=== PATIENT | female | born 1940 | race Hispanic/Latino ===

== ENCOUNTER 2021-02-03 10:08 | Inpatient (IN) | payer OTHER ==
--- NOTE | 2021-02-04 13:08 | R.PREADM ---
PRE-ADMISSION SCREENING FORM SCREENING DATE AND TIME 02/02/2021 10:29 (CDT) ANTICIPATED REHAB ADMISSION DATE 02/04/2021 REFERRING FACILITY [facility] REFERRAL DATE AND TIME 02/01/2021 10:29 (CDT) ACUTE ADMIT DATE 01/23/2021 Previous Rehabilitation(s): No. ATTENDING PHYSICIAN JU Galvez SR, MD REFERRING PHYSICIAN ORLANDO Galvez SR, MD REHAB FACILITY [facility] CLINICAL LIAISON Willard Lundberg PHYSICIAN REVIEWER Dr. Jose Martin Lozano M.D. MR# [id number] [id number] NAME ROSY SANCHES [address]ESS [id number] [place] [address] PH[address] [facility] [id number] DATE OF 1940 AGE 80 SSN# [id number] GENDER female MARITAL STATUS PREF. LANGUAGE (IF NON-KAZAKH) Slovak ADMIT FROM 02 - [facility] PRE-HOSPITAL LIVING SETTING 01 - Home (private home/apt. board/care, assisted living, fpc, transitional living) HOME TYPE AND DETAILS Type of home: single family house # of levels in the residence: 1 # of steps within the residence: 0 # of steps to enter the residence: 0 PRE-HOSPITAL LIVING WITH Family/Relatives FAMILY SUPPORT Yes PRIMARY FAMILY CONTACT NAME JONN SANCHES PRIMARY FAMILY CONTACT PHONE PRIMARY FAMILY CONTACT RELATIONSHIP PHONE PRIMARY FAMILY CONTACT ON ADM.? no IS PRIMARY FAMILY CONTACT AUTH. REP.? no 1ST EMERGENCY CONTACT JONN SANCHES 1ST CONTACT PHONE 1ST CONTACT RELATIONSHIP PHONE 1ST CONTACT ON ADM. no IS 1ST CONTACT AUTH. REP.? no PHONE 2ND CONTACT ON ADM.? no PATIENT EMPLOYMENT STATUS Retired (for age) PATIENT EMPLOYER No Employer PAYOR INFORMATION: 1ST PAYOR NAME MEDICARE 1ST PAYOR PHONE 1ST PAYOR INJURY/ILLNESS DUE TO ACCIDENT? No ANOTHER GREEN PARTY RESPONSIBLE? No PRIMARY REHAB/ACUTE DIAGNOSIS: ACUTE RIGHT FRONTAL STROKE ONSET DATE 01/25/2021 REHAB IMPAIRMENT CATEGORY (DAPHNE): 01 Stroke (STR) MEETS 60% rule AFFECTED EXTREMITIES: RLE, and RUE PRIMARY DIAGNOSIS-RELATED SURGERIES: N/A SUMMARY OF ACUTE HOSPITALIZATION: Pt. is a 80 yo Right-handed female. On 01/25/2021 Pt. presented to [facility] with sudden onset of right-side weakness. On 01/25/2021 she was admitted to [facility] with diagnosis ACUTE RIGHT FRONTAL STROKE. Her impairment category is Stroke 01 - Right Body (Left Brain) (01.2). Pre-morbidly, Pt. was independent/mod-I in Locomotion, Balance, Safety Awareness, and Self-Care; and she had good Endurance, Communication, and Social Cognition. Currently, she has deficits of Locomotion, Balance, Safety Awareness, Transfers Control, Sphincter Co ntrol, Communication, Self-Care, and Endurance. Pt. is now referred to [facility] for acute in-patient rehabilitation in order to maximize patient's functional independence in activities of daily living, strength, ROM, and mobi lity. Patient has realistic goal of being discharged at assistance level 7-Ind to reside at Home with Fami ly/Relatives. PAST MEDICAL HISTORY ARTHRITIS HYPERTENSION CHF HISTORY OF DEMENTIA HISTORY OF CATARACT PAST SURGICAL HISTORY: CATARACT SURGERY RIGHT KNEE SURGERY HYSTERECTOMY MEDICATION ALLERGIES: PENICILLIN ENVIRONMENTAL ALLERGIES: - Substance Allergies None Known - Other Allergies None Known CODE STATUS: Full code WEIGHT/HEIGHT/BMI: WEIGHT 184 lbs HEIGHT 4' 11" BMI 37.2 DIET: - Diet Type Regular - Diet - Solid Texture Regular - Diet - Liquid Texture Regular - Tube Feed N/A REVIEW OF SYSTEMS: - Gen Alert and awake Lying in bed No apparent distress Oriented to: person, time, and place - Vital Signs Temperature: 96 F SBP/DBP: 144/63 Pulse: 61 Resp: 18 Vital signs stable, afebrile - CVS RRR VITAL SIGNS Temperature: 96 F SBP/DBP: 144/63 Pulse: 61 Resp: 18 Vital signs stable, afebrile MEDICATIONS/TREATMENT: Other- See attached MAR (Medication Administration Record). CURRENT SPHINCTER CONTROL: Pre-hospital bladder status: unspecified # of bladder accidents in the last 7 days prior to screenin Pre-hospital bowel status: unspecified # of bowel accidents in the last 7 days prior to screenin Last Bowel Movement Date: 02/02/2021 CURRENT LOCOMOTION STATUS: 60' feet gait training distance seated DETAILED CURRENT FUNCTIONAL STATUS: - Bladder accident frequency: 7-Ind - No accidents in the past 7 days - Bowel accident frequency: 7-Ind - No accidents in the past 7 days - Walking score based on distance walked: 0(N/A) score based on distance walked: 2(50-149ft) - Wheelchair score based on distance traveled: 0(N/A) QI SCORES: - Self-Care A. Eating 03-Partial/moderate assistance B. Oral hygiene 03-Partial/moderate assistance C. Toileting hygiene 03-Partial/moderate assistance E. Shower/bathe self F. Upper body dressing 03-Partial/moderate assistance G. Lower body dressing 03-Partial/moderate assistance H. Putting on/taking off footwear 88-Not attempted due to medical condition or safety concerns - Mobility A. Roll left and right 03-Partial/moderate assistance B. Sit to lying 03-Partial/moderate assistance C. Lying to sitting on side of bed 03-Partial/moderate assistance D. Sit to stand 03-Partial/moderate assistance E. Chair/kkk-[id number]-[id number] transfer 03-Partial/moderate assistance F. Toilet transfer 03-Partial/moderate assistance G. Car transfer 88-Not attempted due to medical condition or safety concerns I. Walk 10 feet 03-Partial/moderate assistance J. Walk 50 feet with two turns 88-Not attempted due to medical condition or safety concerns K. Walk 150 feet 88-Not attempted due to medical condition or safety concerns L. Walking 10 feet on uneven surfaces 88-Not attempted due to medical condition or safety concerns M. 1 step (curb) 88-Not attempted due to medical condition or safety concerns N. 4 steps 88-Not attempted due to medical condition or safety concerns O. 12 steps 88-Not attempted due to medical condition or safety concerns P. Picking up object 88-Not attempted due to medical condition or safety concerns R. Wheel 50 feet with two turns 88-Not attempted due to medical condition or safety concerns S. Wheel 150 feet 88-Not attempted due to medical condition or safety concerns - Bladder and Bowel Bladder continence Bowel continence - Endurance Good - Balance Fair - Safety Awareness Fair CURRENT FUNC. DEFICITS: Self-Care, Mobility, Balance, and Safety Awareness CURRENT / PREVIOUS ASSISTIVE DEVICES: Rolling Walker HISTORY OF FALLS. HAS THE PATIENT HAD TWO OR MORE FALLS IN THE PAST YEAR OR ANY FALL WITH INJURY IN T HE PAST YEAR?: No PRIOR SURGERY. DID THE PATIENT HAVE MAJOR SURGERY DURING THE 100 DAYS PRIOR TO ADMISSION?: No THERAPY NOTES FROM ACUTE CARE: Attached. SPECIAL NEEDS: - Safety Concerns Skin breakdown precautions needed due to skin breakdown risk PRECAUTIONS: - Weight Bearing Precaution WBAT right LE PATIENT NEEDS ACTIVE AND ONGOING THERAPEUTIC INTERVENTION OF MULTIPLE THERAPY DISCIPLINES, INCLUDING: - Occupational Therapy Cognitive Retraining. Visual Perceptual Training. - Dietary and Nutrition Adequate Nutrition. Nutritional Education. Nutritional Supplements. - Speech Therapy Cognitive Training. Expressive Language Skills. Memory Strategies. Receptive Language Skills. Speech Intelligibility Training. PATIENT NEEDS CLOSE MEDICAL SUPERVISION BY A REHABILITATION PHYSICIAN FOR: Coordination of Treatment Team PATIENT REQUIRES 24X7 REHAB NURSING FOR MEDICAL AND FUNCTIONAL MGT. OF THE FOLLOWING DEFICITS: Disease Management Medication Management Patient/Family Education Providing Safe Environment PATIENT REQUIRES INTENSIVE, COORDINATED INTERDISCIPLINARY APPROACH TO REHAB: Arranging Home Equipment/Services Discharge Planning Family Intervention/Training Stock Letterer/Case Management PATIENT REHAB POTENTIAL: Paty SANCHES is able and expected to receive 3 hours of individualized therapy daily on at least 5 of every 7 days Paty Coker prognosis for significant practical improvement within a reasonable period of time appe ars Good Expected level of measurable improvement will be of a practical value to Paty TAYLORs functional cap acity or adaptations to impairments Has a viable Discharge Plan Medically appropriate; condition is sufficiently stable to participate in intensive rehab program DISCHARGE PLAN: - Estimated Length of Stay (days) 17. - Consensus on plan Discharge plan has been discussed with primary caregiver. Patient/Family is in agreement with the jessica n. Primary caregiver is in agreement with the plan. - Patient/Family Goals Return home independently. - Planned Living Setting Upon Discharge Home, to live with Family/Relatives. Transitional Living. RECOMMENDED CARE LEVEL: IRF RECOMMENDATION DETAILS: Recommended Admission to Comprehensive Rehabilitation Program to Increase Functional [place] SCREENER'S COMPLETENESS CONFIRMATION: - Screening Confirmation The patient data collection on this preadmission screening form is finished PHYSICIANS REVIEW AND ADMISSION DETERMINATION Admit - Based on my review of the Pre-Admission Screening results, in my medical judgment and experie nce, I concur with the findings and recommend admission to [facility], as this patient requires an IRF level of care. SIGNATURE PANEL: Twister In - [electronically] signed by Willard Lundberg on 02/04/2021 at 10:37 (CDT) Twister In - [electronically] signed by Javier Saucedo PT on 02/04/2021 at 12:24 (CDT) Physician Reviewer - [electronically] signed by Dr. Jose Martin Lozano M.D. on 02/04/2021 at 13:07 (T )
--- OUTSIDE RECORDS SUMMARY | 2021-02-04 20:59 | XMS REPORT | Continuity of Care Document ---
:1940 Author Organization [facility] t Address [address] [place] [address] Care Team Providers Name Role Phone Stepan SHAIKH Primary Care Physician Ju SHAIKH, O. Attending Clinician Justinsalashely Attending Clinician Unavailable MD JU O. Attending Clinician Unavailable Colleen SHAIKH, L Attending Clinician JU Admitting Clinician Unavailable MD JU O. Admitting Clinician Unavailable Payers Payer Name Policy Type Policy Effective Date Expiration Date Sour ce Number MEDICAREMEDICARE PART [id number] 2007 Shaan agnes A AND 00:00:00 [place] [id number] 2007[place] MUTUAL OF OMAHAMUTUAL [id number] [address] [facility] OF 00:00:00 Mosque [id number] 0-PresentCommercial Problems Condition Condition Condition Status Onset Resolution Last Treating Co mments Source Name Details Category Date Date Treatment Clinician Date Essential Essential Disease Active [facility] hypertensi hypertensi 5-23 Me thodi on on 00:00: st 00 Syncope Syncope Disease Active [place] 5-23 Methodi 00:00: st 00 Atrial Atrial Disease Active [place] fibrillati fibrillati 5-23 Me thodi on on 00:00: st 00 Allergies, Adverse Reactions, Alerts Allergy Allergy Status Severity Reaction(s) Onset Inactive Treating Comm ents Source Name Type Date Date Clinician [place]ic[place] DA Active [place] [facility]23 [place] [facility]: d [facility] Penicill Propensi Active H[place] 2017-09 [place] ins ty to 114 [facility] adverse 00:00: st reaction 00 s to drug Social History Social Habit Start Date Stop Date Quantity Comments Source History of Cigarette Smoker Wilfredo Cuadra tobacco use Alcohol intake 2021-01-24 2021-01-24 Ex-drinker [facility] thodist 00:00:00 00:00:00 (finding) Sex Ass[birth year] At [birth year] [facility] ethodist 00:00:00 00:00:00 Smoking Status Start Date Stop Date Source Former smoker 2021-01-24 00:00:00 2021-01-24 00:00:00 Wilfredo Cuadra Medications Ordered Filled Start Stop Current Ordering Indication Dosage Frequency Signature Comments Components Source Medication Medication Date Date Medication? Clinician (SIG) Name Name amLODIPine 2020- No 5mg QD Take 5 mg H ouroderick (NORVASC) 5 02-04-04 by mouth Met hodi mg tablet 19:39: 00:[address] 01 :00 aspirin 2020- No 81mg QD Take 81 mg [facility] (ECOTRIN) 02-04 06-04 by mouth Metho di 81 MG 19:39: 00:[address] enteric 01 :00 coated tablet cholecalcif 2020- No 1{tbl} QD Take 1 [place] ion, 02-04-04 tablet by [facility]i vitamin D3, 19:39: 00:[address] (VITAMIN D3 01 :00 daily. ORAL) losartan Yes 50mg QD Take 50 mg [facility] [facility] (COZAAR) 50 -04 by mouth Meth laura MG tablet 19:38: daily. st 56 furosemide Yes 20mg QD Take 20 mg [place] (LASIX) 20 6-04 by mouth Metho di mg tablet 19:38: daily. st 56 apixaban Yes 5mg Q.5D Take 1 [place] (ELIQUIS) 5 -04 tablet (5 Met hodi mg tablet 00:00: mg total) st 00 by mouth 2 (two) times a day. acetaminoph 2020- Yes 650mg Q4H Take 2 [place] en 02-04 tablets Methodi (TYLENOL) 00:00: 23:59 ([address] 325 MG 00 :00 total) by tablet mouth every 4 (four) hours as needed for mild pain, moderate pain or fever for up to 30 days. docusate 2020- Yes 100mg Q.5D Take 1 [place] sodium 02-04 capsule [facility] (COLACE) 00:00: 23:59 ([address] 100 MG 00 :00 total) by capsule mouth 2 (two) times a day for 30 days. hydrALAZINE 2020- Yes 5mg Q6H Infuse [facility] st[place] (APRESOLINE 02-04 0.25 mL (5 M ethodi ) 20 mg/mL 00:00: 23:59 mg total) s t injection 00 :00 into a venous catheter every 6 (six) hours as needed for high blood pressure for up to 30 days. rosuvastati 2020- Yes 20mg QD Take 1 [facility] [facility] n (CRESTOR) 02-04 tablet (20 M ethodi 20 mg 00:00: 23:59 mg total) st tablet 00 :00 by mouth nightly for 30 days. Vital Signs Vital Name Observation Time Observation Value Comments Source Systolic blood 2021-02-04 15:25:35 145 mm[Hg] Tiffanyto n [place] pressure Diastolic blood 2021-02-04 15:25:35 65 mm[Hg] Tiffanyt on [place] pressure Heart rate 2021-02-04 15:25:35 65 /min Wilfredo Cuadra Body temperature 2021-02-04 15:25:35 36.33 Madelaine Hous ton [place] Respiratory rate 2021-02-04 15:25:35 16 /min Tiffany Cuadra Oxygen saturation in 2021-02-04 15:25:35 97 /min Wilfredo Cuadra Arterial blood by Pulse oximetry Body weight 2021-02-01 03:27:14 83.598 kg Wilfredo Cuadra BMI 2021-02-01 03:27:14 37.22 kg/m2 Wilfredo Cuadra Body height 2021-01-23 15:44:15 149.9 cm Wilfredo Cuadra Procedures Procedure Date / Time Performing Clinician Source Performed COVID-19 QUALITATIVE PCR 2021-02-03 12:08:00 Andrews Latham COMPREHENSIVE METABOLIC 2021-02-03 06:22:00 Ally Samaniego PANEL ESTIMATED GFR 2021-02-03 06:22:00 Ally Samaniego MRI BRAIN WO CONTRAST 2021-02-01 19:00:00 Enid Ceja ESTIMATED GFR 2021-02-01 03:34:00 Nandini Dodd HC COMPLETE BLD COUNT 2021-02-01 03:34:00 Nandini Dodd W/AUTO DIFF BASIC METABOLIC PANEL 2021-02-01 03:34:00 Nandini Dodd XR SHOULDER 2+ VW LEFT 2021-01-30 17:02:17 Enid Ceja URINE CULTURE 2021-01-29 19:59:00 Nandini Dodd URINALYSIS SCREEN AND 2021-01-29 19:59:00 Nandini Dodd MICROSCOPY, WITH REFLEX TO CULTURE BASIC METABOLIC PANEL 2021-01-29 03:12:00 Ally Samaniego CBC HEMOGRAM 2021-01-29 03:12:00 Ally Samaniego ESTIMATED GFR 2021-01-29 03:12:[address] HEAD WO CONTRAST 2021-01-27 13:54:30 Ally Samaniego FL MODIFIED BARIUM SWALLOW 2021-01-26 13:40:38 Nandini Dodd HC COMPLETE BLD COUNT 2021-01-26 06:33:00 Nandini Dodd W/AUTO DIFF BASIC METABOLIC PANEL 2021-01-26 06:33:00 Nandini Dodd ESTIMATED GFR 2021-01-26 06:33:[address] ANGIOGRAM NECK W WO 2021-01-25 15:48:[address] ANGIOGRAM HEAD W WO 2021-01-25 15:48:[address] HEAD WO CONTRAST 2021-01-25 15:47:58 Elke Francis POC GLUCOSE 2021-01-25 14:33:00 Nandini Dodd HC COMPLETE BLD COUNT 2021-01-25 05:00:00 Nandini Dodd W/AUTO DIFF BASIC METABOLIC PANEL 2021-01-25 05:00:00 Nandini Dodd HEMOGLOBIN A1C 2021-01-25 05:00:00 Ally Samaniego LIPID PANEL 2021-01-25 05:00:00 Ally Samaniego HOMOCYSTINE, PLASMA 2021-01-25 05:00:00 Ally Samaniego FOLATE LEVEL 2021-01-25 05:00:00 Ally Samaniego VITAMIN B12 LEVEL 2021-01-25 05:00:00 Ally Samaniego THYROID STIMULATING 2021-01-25 05:00:00 Ally Samaniego HORMONE T4, FREE 2021-01-25 05:00:00 Ally Samaniego SEDIMENTATION RATE 2021-01-25 05:00:00 Ally Samaniego C-REACTIVE PROTEIN 2021-01-25 05:00:00 Ally Samaniego PROTHROMBIN TIME WITH INR 2021-01-25 05:00:00 Ally Samaniego PARTIAL THROMBOPLASTIN 2021-01-25 05:00:00 Ally Samaniego TIME (PTT) HIV AG/AB COMBINATION 2021-01-25 05:00:00 Ally Samaniego SYPHILIS TREPONEMA SCREEN 2021-01-25 05:00:00 Ally Samaniego WITH RPR CONFIRMATION (REVERSE ALGORITHM) ESTIMATED GFR 2021-01-25 05:00:00 Nandini Dodd TTE COMPLETE, WO CONTRAST, 2021-01-24 14:54:00 Nandini Dodd W DOPPLER ([id number]) US CAROTID DUPLEX 2021-01-24 13:10:[address] HEAD WO CONTRAST 2021-01-24 08:06:03 Nandini Dodd MRI BRAIN W WO CONTRAST 2021-01-24 07:26:00 Radha Rockwell MRA HEAD WO CONTRAST 2021-01-24 07:01:00 Radha Rockwell HC COMPLETE BLD COUNT 2021-01-24 04:54:00 Nandini Dodd W/AUTO DIFF BASIC METABOLIC PANEL 2021-01-24 04:54:00 Nandini Dodd ESTIMATED GFR 2021-01-24 04:54:00 Nandini Dodd LIPID PANEL 2021-01-24 04:54:00 Nandini Dodd ECG 12-LEAD 2021-01-23 20:41:40 Nandini Dodd THYROID STIMULATING 2021-01-23 20:24:00 Nandini Dodd HORMONE T4, FREE 2021-01-23 20:24:00 Nandini Dodd TROPONIN 2021-01-23 20:24:00 Nandini Dodd Plan of Care Planned Activity Planned Date Details Comments Source Future Scheduled 2021-04-03 INFLUENZA VACCINE Marva Cuadra Test 00:00:00 [code = INFLUENZA VACCINE] Future Scheduled 1992 SHINGLES VACCINES Marva Cuadra Test 00:00:00 (#1) [code = SHINGLES VACCINES (#1)] Future Scheduled 1960 Hepatitis C screening Shaan Cuadra Test 00:00:00 (procedure) [code = 334411959] Future Scheduled 1948 65+ PNEUMOCOCCAL Wilfredo Cuadra Test 00:00:00 VACCINE (1 of 2 - PPSV23) [code = 65+ PNEUMOCOCCAL VACCINE (1 of 2 - PPSV23)] Medication 2021-02-05 amLODIPine (NORVASC) [facility] 00:00:00 10 mg tablet [code = 939959] Medication 2021-02-05 cholecalciferol, [facility] 00:00:00 vitamin D3, (VITAMIN D3) 2,000 unit tablet [code = 455334] Medication 2021-02-05 FLUoxetine (PROzac) [facility] 00:00:00 20 MG capsule [code = 520743] Medication 2021-02-05 polyethylene glycol [facility] 00:00:00 (MIRALAX) 17 gram packet [code = 337296] Medication 2021-02-05 levoFLOXacin [facility] 00:00:00 (LEVAQUIN) 250 MG tablet [code = 557337] Encounters Start End Encounter Admission Attending Care Care Encounter Source Date/Time Date/Time Type Type Clinicians Facility Department ID 2021-01-23 2021-02-04 [facility] 016 [id number] [place] 00:00:00 00:00:00 NANDINI [address] 2020-08-18 2020-08-18 [facility] [id number] 15:24:08 15:48:[address] [facility] [id number] Surgical [id number] Specialti [id number] [place] Results Test Description Test Time Test Comments Results Result Comments Source SARS-CoV-2 (COVID-19) RNA [Presence] in Respiratory sp ecimen by 2021-02-03 16:56:56 LIZZETTE with probe detection Test Item Value Reference Range Interpretation Comme nts SARS-CoV-2 (COVID-19) RNA [Presence] in Respiratory Not detected No t-Detected specimen by LIZZETTE with probe detection (test code = 02311-3) Whether patient is employed in a healthcare setting (test code = 19274-4) Whether the patient has symptoms related to condition of interest (test code = 87012-3) Patient was hospitalized because of this condition (test code = 35773-5) Whether the patient was admitted to intensive care unit (ICU) for condition of interest (test code = 49329-4) Whether patient resides in a congregate care setting (test code = 09993-8) MRI Brain Wo [id number] 20:21:38Hm Interface, Radiology Results Incoming 02/01/2021 8:24 PM CDT EXAMINATION: MRI BRAIN WO CONTRASTCLINICAL HISTORY: Stroke follow up, Worsneing left sided weakness with neglectCOMPARISON: MRI brain 01/24/2021TECHNIQUE: Multiplanar and multisequence MRI imaging of the brain was obtained without contrast.FINDINGS:Multiple new acute infarcts in the right frontal and parietal schroeder radiata and centrum semiovale in the border zone distribution. No other acute infarct. No hemorrhage. No significant mass effect and no midline shift.Otherwise, there is mild to moderate chronic microvascular ischemic change and cerebral volume loss with proportionate prominence of ventricles. Basal cisterns are clear.Bilateral lens extractions. Mild scattered paranasal sinus mucosal thickening. Mastoid air cells are clear.IMPRESSION:1. Multiple new acute infarcts in the right frontal and parietal lobe in the border zone distribution. No hemorrhage.Findingswere discussed with and acknowledged by Ishan Calle at 02/01/2021 8:21 PM who verbalized understanding. [id number] [place] MethodistXR Shoulder 2+ Vw [id number] 17:03:30Hm Interface, Radiology Results 01/30/2021 5:06 PM CDT EXAMINATION: XR SHOULDER 2 VW LEFTCLINICAL HISTORY: Left shoulder painCOMPARISON: None.IMPRESSION:No acute fracture. Moderate left acromioclavicular joint osteoarthritis and mild glenohumeral joint osteoarthritis. Alignment is maintained. Globular density along the humeral head suggestive of calcific tendinitis. Normal osseous mineralization.[id number] MethodistCT Head Wo [id number] 14:10:59Hm Interface, Radiology Results 01/27/2021 2:14 PM CDT EXAMINATION: CT HEAD WO CONTRASTCLINICAL HISTORY: Stroke follow up, Lleweakness worsenedCOMPARISON: CT head January 24, 2021 and MRI brain January 24, 2021TECHNIQUE: Noncontrast head CT performed using radiation dose reduction techniques. Technical factors are evaluated and adjusted to ensure appropriate moderation of exposure. Automated dose management technology is applied to adjust radiation exposure while achieving a diagnostic quality image. FINDINGS:No evidence of acute intracranial hemorrhage, mass, mass effect or midline shift. Chronic microvascular ischemic changes of the white matter. Evolving subacute microvascular infarct at the right frontal deep white matter, more conspicuous than on previous CT better seen on recent MR. Ventricles and sulci are normal in appearance for patient's age. Basal cisterns are clear. Calvarium is intact.Bilateral eye lens replacement changes. Orbits are otherwise normal in appearance. No significant paranasal sinus mucosal thickening. Mastoid air cells are clear. Sclerotic changes of the carotid siphons. IMPRESSION:1. Evolving subacute microvascular infarct at the right frontal deep white matter otherwise no significant change from previous exam. No intracranial hemorrhage or herniation.[facility]-[id number] MethodistFL Modified Barium [id number] 13:51:28Hm Interface, Radiology Results 01/26/2021 1:54 PM CDT EXAMINATION: FL MODIFIED BARIUM SWALLOWCLINICAL HISTORY: AspirationCOMPARISON: None.Fluoroscopy time: 1 minute, 791 imagesFINDINGS: The patient was given multiple consistencies of barium. The swallowing act was normal. There was no evidence of aspiration. Flash penetrationIMPRESSION:Flash penetration without aspirationPlease refer to Speech Pathology report for further de tails.[facility]-[id number] MethodistCTA Head W Wo [id number] 15:59:03Hm Interface, Radiology Results 01/25/2021 4:02 PM CDT EXAMINATION: CT ANGIOGRAM HEAD W WO CONTRASTCLINICAL HISTORY: strokeCOMPARISON: MRA brain dated 01/24/2021.TECHNIQUE: Imaging of the intracranial circulation was obtained from the skull base to the vertex during the arterial phase of enhancement. 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.Severe short segment stenosis of the left INTERIOR WALL ASSEMBLER P2 segment.[facility]-[id number] [place] MethodistCTA Neck W Wo [id number] 15:57:01Hm Interface, Radiology Results Incoming - 01/25/2021 4:00 PM CDT EXAMINATION: CT ANGIOGRAM NECK W WO CONTRASTCLINICAL HISTORY: strokeCOMPARISON: None.TECHNIQUE:Neck CTA with multi-planar MIP and volumetric rendering (3D) after bolus intravenous iodinated contrast administration was performed.All CT images were acquired using low- dose technique with automated exposure control.FINDINGS:Normal branching pattern of the aortic arch. Arteriosclerosis of the aortic arch and proximal great vessels. Dominant left vertebral artery. Mild arteriosclerosis of the carotid bifurcations and proximal left internal carotid artery.The bilateral cervical carotid and vertebral arterial systems appear patent without evidence of dissection or hemodynamically significant stenosis (0% by NASCET criteria).Right thyroid nodule measuring approximately 1.1 cm,not requiring further workup. Multilevel degenerative changes of the cervical spine, likely most pronounced at C5-C6.IMPRESSION:No dissection or hemodynamically significant cervical carotid or vertebral artery stenosis.[facility]-[id number] MethodistPv carotid duplex 2021-01-24 22:02:00Interface, Radiology Results In - 01/24/2021 10:02 PM CDT [facility] Carotid Artery Duplex Report [id number] [place] [address] For quality management nurse purposes, the categorization of thedegree of the stenosis of this exam is based on criteria described in the IAC carotid stenosis grading white paper( www.intersocietal.org/Vascular) and Ciera Bhatt., Roman Mercer., et al. Carotid artery stenosis: russo-scale and Doppler US diagnosis--Society of Radiologists in Ultrasound Consensus Conference. Radiology. 2003 Nov; 229(2):340-6. Pat.Name: ROSY SANCHES Valerie.ID: [id number] .Date: 01/24/2021 Refer.MD: NANDINI DODD MD Exam Time: 12:38:00 PM Study Type:Carotid Age: 2 1940,80Y Sex: FEMALE Sonogrphr: Jonh, KONSTANTIN, EVERARDO Pat. Stat.:Inpatient Room: [facility] Tape Vol:DANIA, [facility] - 4: [id number] Echo Event ID:[id number] Order ID: [id number] Reason for Study:Syncope. History of HTN, CHF, dementia.Procedures: Colorflow, Grayscale/2D, Pulsed wave DopplerRace: C ---------SUMMARY: PHYSICAL ASSESSMENT Blood Pulses Carotid Pressure Carotid Temporal BruitRight IV + + 0Left 171/61 + + 0CAROTID ARTERY SCANRIGHT: There is intimal thickening in the common carotid artery.There is hard and calcified plaque noted in the bulb extending intothe proximal external carotid artery. Color flow is normal. Theinternal carotid artery is clear. There is antegrade flow noted inthe vertebral artery. LEFT: There is hard and soft plaque in the common carotid artery. Thereis calcified plaque noted in the bulb extending into theproximal internal and external carotid arteries. Color flow is normal.There is antegrade flow noted in the vertebral artery. PRELIMINARY FINDINGS1. <50% stenosis in the bulb and internal carotid artery,bilaterally. 2. <50% stenosis in theexternal carotid artery, bilaterally.3. Non-stenotic hard and soft plaque in the left mid common car otidartery. 4. There is antegrade flow noted in the vertebral artery, bilaterally.PHYSICIAN INTERPRETATION Bilateral carotid duplex examination demonstrated atheroscleroticplaques in the bulbs and in the left CCA. Less than 50% stenosis in the bulb and internal carotid artery,bilaterally.Both vertebral arteries are antegrade. FINDINGS: Carotid Findings: Right Left Verteb.Flw Antegrade Antegrade Subclavian Triphasic Biphasic MEASUREMENTS: ----- DOPPLERRight CCA Dist CCA Dist PSV 62.2 cm/s CCA Dist EDV5.06 cm/sRight CCA Mid CCA Mid PSV 77.7 cm/s CCA Mid EDV 7.3 cm/sRight CCA Prox CCA Prox PSV 80.3 cm/s CCA Prox EDV 6 cm/sRight ECA Prox ECA Prox PSV 114 cm/s ECA Prox EDV 0 cm/sRight ICA Dist ICA Dist PSV 80.8 cm/s ICA Dist EDV 15.3 cm/sRight ICA Mid ICA Mid PSV 77.6 cm/s ICA Mid EDV 13.8 cm/sRight ICA Prox ICA Prox PSV 51.1 cm/s ICA Prox EDV 11.9 cm/sRight Vertebral Vertebral PSV 58.1 cm/s Vertebral EDV 10.2 cm/sRight Subclavian Subclavian PSV 135 cm/s Subclavian EDV 0 cm/sLeft CCA Dist CCA Dist PSV 66 cm/s CCA Dist EDV 6.3 cm/sLeftCCA Mid CCA Mid PSV 78.5 cm/s CCA Mid EDV 9.04 cm/sLeft CCA Prox CCA Prox PSV 77.4 cm/s CCA Prox EDV 5.2 cm/sLeft ECA Prox ECA Prox PSV 93.8 cm/s ECA Prox EDV 0 cm/sLeft ICA Dist ICA Dist PSV 143 cm/s ICA Dist EDV 8.36 cm/sLeftICA Mid ICA Mid PSV 106 cm/s ICA Mid EDV 13 cm/sLeft ICA Prox ICA Prox PSV 93 cm/s ICA Prox EDV 13.9 cm/sLeft Vertebral Vertebral PSV 73.7 cm/s Vertebral EDV 7.43 cm/sLeft Subclavian Subclavian PSV 164 cm/s Subclavian EDV 0 cm/sRight ICA/CCA Ratio ICA/CCA PSV 0.658 Left ICA/CCA Ratio ICA/CCA PSV 1.18 Signed 01/24/2021 10:02 PMJace Benitez MD, [facility] Methodpeak behavioral health servicesTransthoracic Echocardiogram Complete, (w Contrast, Strain and 3D if needed)2021-01-24 19:57:00Interface, Radiology Results In - 01/24/2021 7:57 PM CDT Echocardiography Report [id number] [place] [address] Pat.Name: ROSY SANCHES Pat.ID: [id number] .Date: 01/24/2021 Refer.MD: NANDINI DODD MD Exam Time: 2:15:00 PM Study Type:Routine Echo Height: 59in Weight: 183lb BSA: 1.78 m2 Age: 2 1940,80Y Sex: FEMALE BP: 171/61 HR: 51 bpm Sonogrphr: EVERARDO Marroquin Pat. Stat.:Inpatient Room: [facility] Study Status:Final Echo Event ID:[id number] Order ID: [id number] Reason for Study:Arrhythmias - Infrequent APCs or infrequent VPCswithout other evidence of heart diseaseProcedures: 2D Echo, Colorflow Doppler, Portable SUMMARY: LV EF is hyperdynamic.RV systolic function is normal.LA volume is severely enlarged. FI NDINGS: LV: LV size is normal. Concentric left ventricular remodeling. LV EF is hyperdynamic. Overall wall motion is hyperdynamic. Estimated EF is >70%.RV: RV size is normal. RV systolic function is normal. RV wall motion is normal.LA: LA volume is severely enlarged.RA: RA size is normal.AO: Aortic root diameter is normal.WILBERTO: No pericardial effusion.AV: No structural AV abnormalities noted. A trace of aortic regurgitation. MV: Mild thickening and calcification of mitral leaflets. Thickened and/or calcified chordae. A trace of mitral regurgitation. PV: Pulmonic valve not well seen. A trace of pulmonic regurgitation. TV: No structural TV abnormalities noted. A trace of tricuspid regurgitation Alfaro: LV relaxation is impaired. LV filling pressure is borderline elevated. Other: Estimated PA systolic pressure is 34 mmH g, assuming a mean RAP of 5 mmHg. MEASUREMENTS: 2DParasternal Long [place] Ao An1.8 cm LVPWd 1 cm Ao Rtd 2.5 cm Index 1.4 cm/m2 LA Ds 3.9 cm IVSd 1.2 cm RWT 0.45 LVIDd 4.5 cm Index 2.5 cm/m2 LV Mass 168 g (87-129) LVIDs 2.1 cm LVM Index 95 g/m2 LV%fs 54 % LVOT 1.7 cm LA Sng Plane LA Area 27 cm2 (8.8-23.4) LA Vol 91 ml Index 51 ml/m2 LA LngAx 6.9 cm RA Sng Plane RA Vol 48 ml Index 27 ml/m2 RA LngAx 5.3 cm RA Area 16 cm2 (8.3-19.5)LVOT LVOT Area 2.2 cm2 DOPPLERLVOT Stroke Vol & Cardiac Out LVOT TVI 36 cm HR 69 bpm LVOT LVOT SV 79 ml LVOT CO 5.5 l/min SVi 44 ml/m2 LVOT CI 3.1 l/m/m2MV E/A Ratio MV pkE 99 cm/s (60-130) MV E/A 0.99 MV pkA 101 cm/s Signed 01/24/2021 07:57 Tray Chatterjee M.D.[facility] MethodistECG 12 lead 2021-01-24 10:37:30 Test Item Value Reference Range Interpretation Comments Ventricular rate (test 54 code = 253) Atrial rate (test code = 54 255) MO interval (test code = 150 266) QRSD interval (test code 84 = 260) QT interval (test code = 450 264) QTC interval (test code 426 = 265) P axis 1 (test code = 105 267) QRS axis 1 (test code = 30 268) T wave axis (test code = 53 270) EKG impression (test Sinus bradycardia-ST code = 273) abnormality, possible digitalis effect-Abnormal ECG-No previous ECGs available-Electronica lly Signed By Ramesh Moreira MD ([id number]) on 01/24/2021 10:37:24 AM [place] MethodistMRA Head Wo [id number] 08:03:38Addendum by Ryder Giordano MD on 01/24/2021 3:41 PM ADDENDUM #1 Retrospective review of the source images reveals normal variant early bifurcation of the right MCA, with anterior division arising from the mid M1 segment, images 66-76 of series 2. There is loss of flow-related signal along the proximal posterior division branch as it bifurcates along the anterior right sylvian fissure, image 25 of series 201. There is normal flow-related signal distally within the M2 and M3 branches of the right sylvian fissure. IMPRESSION: Findings suggestive of near occlusive thrombus within the proximal M2 branch of the right MCA as detailed above, which likely contributes to the recent ischemia within the right frontal lobe white matter. Interface, Radiology Results Incoming- 01/24/2021 8:06 AM CDT EXAMINATION: MRA HEAD WO CONTRASTCLINICAL HISTORY: Stroke follow upCOMPARISON: NoneTECHNIQUE: [id number] MRA images of the elem of Allan vessels were obtained with multiplanar and 3-D reconstructive algorithms.FINDINGS:Normal flow-related signal is noted within the cervical, petrous, cavernous, clinoid and supraclinoid segments of the internal carotid arteries bilaterally. No aneurysms or measurable stenosis identified.The major branches of the anterior and posterior circulations are patent without luminal irregularity. No basilar tip aneurysms identified. The V4 segments have normal flow-related signal bilaterally. No variant anatomy.IMPRESSION:Patent elem of Allan vasculature, without evidence of an eurysm or significant stenosis.CARONDELET [id number] MethodUNM [facility]oval [facility] CenterI Brain W Wo [id number] 08:02:16 Interface, Radiology Results 01/24/2021 8:05 AM CDT EXAMINATION: MRI BRAIN W WO CONTRASTCLINICAL HISTORY: Stroke follow upCOMPARISON: CT head 07/17/2018.TECHNIQUE: Multiplanar and multisequence MRI imaging of the brain was obtained with and without contrast.FINDINGS:There are punctate foci restricted diffusion throughout theright frontal lobe white matter, for example image 9 of series 3, compatible with recent infarcts. No associated susceptibility identified to suggest hemorrhage. No other foci restricted diffusion identified.Scattered T2/FLAIR hyperintensities are noted throughout the periventricular and subcortical white matter, nonspecific but likely related to moderate chronic microvascular ischemic changes. No restricted diffusion identified to indicate recent infarct. No intra or extra-axial fluid collections identified. No mass, mass effect, or midline shift is seen.The basal ganglia, thalami, midbrain, cathy and cervicomedullary junction are unremarkable. Sella turcica is normal in appearance. The ventricular system and sulci are prominent, compatible with global parenchymal volume loss, unremarkable for patient's age. The basal cisterns are patent. The calvarium appears intact. The major intracranial vascular flow voids are present. No abnormal parenchymal or meningeal enhancement identified. Prior cataract lens extractions are noted bilaterally. The paranasal sinuses are unremarkable. The mastoid air cells and middle ear cavities are clear.IMPRESSION:Acute right frontal microvascular ischemic infarcts on background moderate chronic microvascular ischemic changes. No evidence of hemorrhage.These findings were discussed with ISHAN Garcia at 0800 hours on 01/24/2021 who verbalized understanding.[facility] [id number] MethodistCOMPREHENSIVE METABOLIC PANEL 2021-01-23 11:30:00 Test Item Value Reference Range Interpretation Comments SODIUM (test code = NA) 143 mmol/L 134-147 N POTASSIUM (test code = 3.8 mmol/L 3.4-5.0 N K) CHLORIDE (test code = 109 mmol/L 100-108 H CL) CARBON DIOXIDE (test 30 mmol/L 21-32 N code = CO2) ANION GAP (test code = 4.0 GAP calc 4.0-15.0 N GAP) GLUCOSE (test code = 98 MG/DL 70-110 N GLU) BLOOD UREA NITROGEN 20 MG/DL 7-18 H (test code = BUN) GLOMERULAR FILTRATION >=60 max estimate >60 RATE (test code = GFR) estGFR CREATININE (test code = 0.7 MG/DL 0.6-1.0 N CREAT) TOTAL PROTEIN (test code 7.4 G/DL 6.4-8.2 N = PROT) ALBUMIN (test code = 3.8 G/DL 3.4-5.0 N ALB) GLOBULIN (test code = 3.6 GM/dL GLOB) ALBUMIN/GLOBULIN RATIO 1.1 RATIO 1.2-2.2 L (test code = A/G) CALCIUM (test code = CA) 9.6 MG/DL 8.5-10.1 N BILIRUBIN TOTAL (test 0.40 MG/DL 0.2-1.2 N code = BILT) SGOT/AST (test code = 17 Unit/L 15-37 N AST) SGPT/ALT (test code = 18 Unit/L 12-78 N ALT) ALKALINE PHOSPHATASE 80 Unit/L 45-117 N TOTAL (test code = ALKP) Completed by Nursing: [id number] 11:30:00 Test Item Value Reference Range Interpretation Comments MAGNESIUM (test code = MAG) 2.3 MG/DL 1.8-2.4 N Completed by Nursing: NONT PRO-BRAIN NATRIURETIC [id number] 11:30:00 Test Item Value Reference Range Interpretation Comments NT PRO-BRAIN NATRIURETIC PEPTI 924 PG/ML 0-100 H (test code = PROBNP) Completed by Nursing: [id number] 11:30:00 Test Item Value Reference Range Interpretation Comments TROPONIN-I (test < 0.015 NG/ML 0.000-0.045 N Negative: </= 0.045 code = TROPI) Positive: >/= 0.046 Correlation wit h serial results, other cardiac markers, and cl inical findings is nec essary to determine the c linical significance of this result. Quantit ative results using d ifferent methodologies s hould not be compared to one another as nume rical results may shazia yby method. Completed by Nursing: NOCOMPREHENSIVE METABOLIC [id number] 11:21:00 Test Item Value Reference Range Interpretation Comments SODIUM (test code = NA) 143 mmol/L 134-147 N POTASSIUM (test code = K) 3.8 mmol/L 3.4-5.0 N CHLORIDE (test code = CL) 109 mmol/L 100-108 H CARBON DIOXIDE (test code = CO2) 30 mmol/L 21-32 N ANION GAP (test code = GAP) 4.0 GAP calc 4.0-15.0 N GLUCOSE (test code = GLU) 98 MG/DL 70-110 N BLOOD UREA NITROGEN (test code = 20 MG/DL 7-18 H BUN) GLOMERULAR FILTRATION RATE (test estGFR >60 code = GFR) CREATININE (test code = CREAT) MG/DL 0.6-1.0 TOTAL PROTEIN (test code = PROT) G/DL 6.4-8.2 ALBUMIN (test code = ALB) G/DL 3.4-5.0 GLOBULIN (test code = GLOB) GM/dL ALBUMIN/GLOBULIN RATIO (test RATIO 1.2-2.2 code = A/G) CALCIUM (test code = CA) 9.6 MG/DL 8.5-10.1 N BILIRUBIN TOTAL (test code = MG/DL 0.2-1.2 BILT) SGOT/AST (test code = AST) Unit/L 15-37 SGPT/ALT (test code = ALT) Unit/L 12-78 ALKALINE PHOSPHATASE TOTAL (test Unit/L 45-117 code = ALKP) Completed by Nursing: [id number] 11:21:00 Test Item Value Reference Range Interpretation Comments MAGNESIUM (test code = MAG) MG/DL 1.8-2.4 Completed by Nursing: NONT PRO-BRAIN NATRIURETIC [id number] 11:21:00 Test Item Value Reference Range Interpretation Comments NT PRO-BRAIN NATRIURETIC PEPTI (test PG/ML 0-100 code = PROBNP) Completed by Nursing: [id number] 11:21:00 Test Item Value Reference Range Interpretation Comments TROPONIN-I (test code = TROPI) NG/ML 0.000-0.045 Completed by Nursing: NOCBC W/AUTO [id number] 11:15:00 Test Item Value Reference Range Interpretation Comments WHITE BLOOD CELL (test code = 6.4 K/mm3 3.5-11.0 N WBC) RED BLOOD CELL (test code = 5.07 M/mm3 4.70-6.10 N RBC) HEMOGLOBIN (test code = HGB) 13.7 G/DL 10.4-14.9 N HEMATOCRIT (test code = HCT) 43.4 % 31.5-44.1 N MEAN CELL VOLUME (test code = 85.6 Fl 84.5-98.6 N MCV) MEAN CELL HGB (test code = MCH) 27.0 pg 27.0-34.2 N MEAN CELL HGB CONCETRATION 31.6 G/DL 31.5-34.0 N (test code = MCHC) RED CELL DISTRIBUTION WIDTH 12.9 SD 11.5-14.5 N (test code = RDW) PLATELET COUNT (test code = 205 K/mm3 150-450 N PLT) MEAN PLATELET VOLUME (test code 10.50 fL 7.0-10.5 N = MPV) NEUTROPHIL % (test code = NT%) 67.6 % 40-76 N IMMATURE GRANULOCYTE % (test 0.6 % 0.0-5.0 N code = IG%) LYMPHOCYTE % (test code = LY%) 20.8 % 20.5-51.1 N MONOCYTE % (test code = MO%) 7.0 % 1.7-9.3 N EOSINOPHIL % (test code = EO%) 3.1 % 0.0-6.0 N BASOPHIL % (test code = BA%) 0.9 % 0.0-2.0 N NUCLEATED RBC % (test code = 0.0 /100WBC% 0.0-1.0 N NRBC%) NEUTROPHIL # (test code = NT#) 4.4 K/mm3 1.8-7.6 N IMMATURE GRANULOCYTE # (test 0.04 x10 3/uL 0.00-0.03 H code = IG#) LYMPHOCYTE # (test code = LY#) 1.3 K/mm3 0.6-3.2 N MONOCYTE # (test code = MO#) 0.5 K/mm3 0.3-1.1 N EOSINOPHIL # (test code = EO#) 0.2 K/mm3 0.0-0.4 N BASOPHIL # (test code = BA#) 0.1 K/mm3 0.0-0.1 N NUCLEATED RBC # (test code = 0.0 K/mm3 0.0-0.1 N NRBC#) MANUAL DIFF REQUIRED (test code NO DIFF/SCN CRITERIA = MDIFF) - XR CHEST 1 [id number] 11:05:00 [facility] 1940 Sex: F Name: ROSY SANCHES [facility] : 1940 Age/S: 80 / F [id number] Unit #: [id number] Loc:[place] [address] Phys: Leslie Diaz MD Acct: [id number] Dis Date: Status: PRE ER PHONE #: [phone] Exam Date: 01/23/2021 1100 FAX #: Reason: AFib with RVR EXAMS: CPT: [id number] XR CHEST 1 V [id number] Fluoro Time: DAP (Gy m2): Air Kerma (mGy): CLINICAL HISTORY: AFib with RVR. LOCATION: A1 FINDINGS: No comparison studies. A portable AP view of the chest is dated 01/23/2021 at 11:04 AM. There is mild cardiomegaly with moderate calcification at the aortic arch. There is central vascular congestion and mild diffuse interstitial prominence. No consolidation or pleural effusions. There is mild dextroscoliotic curvature of the thoracic spine with mild degenerative changes noted of the skeletal structures. IMPRESSION: 1. There is central vascular congestion and mild diffuse interstitial prominence. This may represent mild edema. Please correlate clinically. 2. Mild cardiomegaly. at 1105 Reported and signed by: Elton Hair M.D. CC: Leslie Diaz MD PAGE 1 Signed Report Name: ROSY SANCHES [place] : 1940 Age/S: 80 / F [phone] Unit #: [id number] Loc: [place] [address] Phys: Leslie Diaz MD Acct: [id number] Dis Date: Status: PRE ER PHONE #: [phone] Exam Date: 01/23/2021 1100 FAX #: Reason: AFib with RVR EXAMS: CPT: [id number] XR CHEST 1 V [id number] Fluoro Time: DAP (Gy m2): Air Kerma (mGy): <Continued> Technologist: Lenard Dhillon, RT(R)(CT) Trnscb Date/Time: 01/23/2021 (4130) [id number] Orig Print D/T: S: 01/23/2021 (6171) PAGE 2Signed Report
[2021-02-04] MEDS ORDERED: POLYETHYL GLY 3350 17 GM/DOSE PO PRN (21:23)
[2021-02-04] MEDS: ACETAMINOPHEN 325 MG TABLET PO PRN (21:37)
[2021-02-05 06:40] LABS: Absolute Lymphocytes (CBC) 1.1 K/uL (0.7-4.9); MPV 8.5 fL (7.6-11.3)
[2021-02-05 06:43] LABS: Basophils % 2.2 % (0-1.3); Lymphocytes % 21.5 % (15.3-44.8); RBC Red Blood Cell Count 4.79 M/uL (3.86-4.86)
[2021-02-05 06:58] LABS: Albumin 2.8 g/dL (3.4-5.0); BUN Blood Urea Nitrogen 19 mg/dL (7-18); Bicarbonate 29 mmol/L (21-32); Glucose Level 81 mg/dL (74-106); Magnesium 2.3 mg/dL (1.8-2.4); Potassium 4.1 mmol/L (3.5-5.1); Prealbumin 13.1 mg/dL (20-40); Sodium Level 141 mmol/L (136-145)
[2021-02-05] MEDS: FUROSEMIDE 20 MG TABLET PO SCH (09:10)
[2021-02-05] MEDS: APIXABAN 5 MG TABLET PO SCH ×2 (09:10→20:34)
[2021-02-05] MEDS: VITAMIN D 1000 UNIT TAB PO SCH (09:10)
[2021-02-05] MEDS: FLUOXETINE 20 MG CAP PO SCH (09:11)
[2021-02-05] MEDS: DOCUSATE NA 100 MG CAP PO SCH ×2 (09:11→20:34)
[2021-02-05] MEDS: levoFLOXacin 250 MG TAB PO SCH (09:11)
[2021-02-05] MEDS: ACETAMINOPHEN 325 MG TABLET PO PRN (09:13)
[2021-02-05] MEDS: AMLODIPINE 5 MG TAB PO SCH ×2 (09:14→20:34)
[2021-02-05] MEDS: LOSARTAN POTASSIUM 50 MG TABLET PO SCH (12:31)
[2021-02-05] MEDS: LIDOCAINE 4% PATCH TOP SCH (12:37)
--- NOTE | 2021-02-05 19:18 | R.HP ---
HISTORY AND PHYSICAL FACILITY: [facility] ENCOUNTER DATE AND TIME: 02/05/2021 19:11 (CDT) MR#: [id number] NAME ROSY SANCHES ADDRESS: [facility] [place]: [place] [address]IP [address] PHONE: DATE OF : 1940 AGE: 80 SSN# [id number] GENDER: Female MARITAL STATUS PRE-HOSPITAL LIVING SETTING 01 - Home (private home/apt. board/care, assisted living, fci, transitional living) PRE-HOSPITAL LIVING WITH Family/Relatives ENCOUNTER PHYSICIAN: Dr. Jose Martin Lozano M.D. REFERRING DOCTOR: ORLANDO Galvez SR, MD DATE OF ADMISSION: 02/04/2021 20:55 (CDT) REFERRING FACILITY [facility] HOME TYPE AND DETAILS: Type of home: single family house # of levels in the residence: 1 # of steps within the residence: 0 # of steps to enter the residence: 0 ONSET DATE: 01/25/2021 PRIMARY DIAGNOSIS-RELATED SURGERIES: N/A HISTORY OF PRESENT ILLNESS (HPI): Pt. is a 80 yo Right-handed female. On 01/25/2021 Pt. presented to [facility] with sudden onset of right-side weakness. On 01/25/2021 she was admitted to [facility] with diagnosis ACUTE RIGHT FRONTAL STROKE. Her impairment category is Stroke 01 - Right Body (Left Brain) (01.2). Pre-morbidly, Pt. was independent/mod-I in Locomotion, Balance, Safety Awareness, and Self-Care; and she had good Endurance, Communication, and Social Cognition. Currently, she has deficits of Locomotion, Balance, Safety Awareness, Transfers Control, Sphincter Co ntrol, Communication, Self-Care, and Endurance. Pt. is now referred to [facility] for acute in-patient rehabilitation in order to maximize patient's functional independence in activities of daily living, strength, ROM, and mobi lity. Patient has realistic goal of being discharged at assistance level 7-Ind to reside at Home with Fami ly/Relatives. CBC with differential and BMP are essentially normal. Prealbumin is low at 13.1. MEDICATION ALLERGIES: PENICILLIN ENVIRONMENTAL ALLERGIES: - Substance Allergies None Known - Other Allergies None Known PAST MEDICAL HISTORY: ARTHRITIS HYPERTENSION CHF HISTORY OF DEMENTIA HISTORY OF CATARACT PAST SURGICAL HISTORY: CATARACT SURGERY RIGHT KNEE SURGERY HYSTERECTOMY SOCIAL HISTORY: - Home Living Family/Relatives REVIEW OF SYSTEMS: - Gen No Chills Fatigue No Fever - Eyes No Double Vision No itchiness - ENMT No Difficulty Swallowing - CVS No Chest Discomfort No Chest Pain Fatigue No Weight Gain - Resp No Cough No Shortness of Breath - GI Continent No Abdominal Pain No Constipation No Diarrhea - Continent No Kidney Pain No Painful Urination No Urinary Urgency - MSK No Joint Pain Muscle Cramps Stiffness - Skin No Itching No Rash No Suspicious Lesions - Neuro Coordination Difficulty Difficulty with Concentration Memory Loss No Seizures Weakness - Psych Anxiety No Depression No HIV Exposure No Persistent Infections No Seasonal Allergies - Endo No Cold/Heat Intolerance No Excessive Hunger No Excessive Thirst No Excessive Urination PHYSICAL EXAM - Gen Alert and awake Lying in bed No apparent distress Oriented to: person, time, and place - Skin No breakdown Normacephalic - Eyes No abnormalities - ENMT No abnormalities - Neck No abnormalities - CVS RRR - Chest Clear - Abd + bowel sounds - GI Soft Deferred - No abnormalities - Ext No significant edema - MSK 4+/5 weakness in right upper and lower extremities. - Neuro 4/5 strength right upper and lower extremities. - Psych Mild anxiety. VITAL SIGNS Temperature: 96 F SBP/DBP: 152/81 Pulse: 71 Resp: 18 NURSING: - Shower allowing shower - Bladder care per protocol - Skin care per protocol PRECAUTIONS: - Weight Bearing Precaution WBAT right LE ACTIVITIES OOB only with supervision QI SCORES: - Self-Care A. Eating 03-Partial/moderate assistance B. Oral hygiene 03-Partial/moderate assistance C. Toileting hygiene 03-Partial/moderate assistance E. Shower/bathe self F. Upper body dressing 03-Partial/moderate assistance G. Lower body dressing 03-Partial/moderate assistance H. Putting on/taking off footwear 88-Not attempted due to medical condition or safety concerns - Mobility A. Roll left and right 03-Partial/moderate assistance B. Sit to lying 03-Partial/moderate assistance C. Lying to sitting on side of bed 03-Partial/moderate assistance D. Sit to stand 03-Partial/moderate assistance E. Chair/ejr-zc-[id number] transfer 03-Partial/moderate assistance F. Toilet transfer 03-Partial/moderate assistance G. Car transfer 88-Not attempted due to medical condition or safety concerns I. Walk 10 feet 03-Partial/moderate assistance J. Walk 50 feet with two turns 88-Not attempted due to medical condition or safety concerns K. Walk 150 feet 88-Not attempted due to medical condition or safety concerns L. Walking 10 feet on uneven surfaces 88-Not attempted due to medical condition or safety concerns M. 1 step (curb) 88-Not attempted due to medical condition or safety concerns N. 4 steps 88-Not attempted due to medical condition or safety concerns O. 12 steps 88-Not attempted due to medical condition or safety concerns P. Picking up object 88-Not attempted due to medical condition or safety concerns R. Wheel 50 feet with two turns 88-Not attempted due to medical condition or safety concerns S. Wheel 150 feet 88-Not attempted due to medical condition or safety concerns - Bladder and Bowel Bladder continence Bowel continence - Endurance Good - Balance Fair - Safety Awareness Fair CURRENT FUNC. DEFICITS: Self-Care, Mobility, Balance, and Safety Awareness MEDICATIONS: - Other See attached MAR (Medication Administration Record) ASSESSMENT: Pt. is a 80 yo Right-handed female.On 01/25/2021 Pt. presented to [facility] with sudden onset of righ t-side weakness.On 01/25/2021 she was admitted to [facility] with diagnosis ACUTE RIGHT FRONTAL STROKE .Her impairment category is Stroke 01 - Right Body (Left Brain) (01.2).Pre-morbidly, Pt. was indepen dent/mod-I in Locomotion, Balance, Safety Awareness, and Self-Care; and she had good Endurance, Commu nication, and Social Cognition.Currently, she has deficits of Locomotion, Balance, Safety Awareness, Transfers Control, Sphincter Control, Communication, Self-Care, and Endurance.Pt. is now referred to [facility] for acute in-patient rehabilitation in order to maximize patient's functional independence in activities of daily living, strength, ROM, and mobility.- Rehab Goal Patient has realistic goal of being discharged at assistance level 7-Ind to reside at Home with Fami ly/Relatives. for Dementia, TBI, Stroke, or others - Physical Therapy Gait dysfunction - to improve, our physical therapists will perform initial evaluation of pt's status upon admission and devise an individualized program for Gait Training, and Wheel Chair mobility Inability to transfer - to improve, our physical therapists will perform initial evaluation of pt's s tatus upon admission and devise an individualized program for Bed mobility Need for home safety evaluation - to improve, our physical therapists will perform initial evaluation of pt's status upon admission and devise an individualized program for Home Evaluation Need in caregiver upon discharge - to improve, our physical therapists will perform initial evaluatio n of pt's status upon admission and devise an individualized program for Caregiver Training Edema - to improve, our physical therapists will perform initial evaluation of pt's status upon admi ssion and devise an individualized program for Elevation Training, and Lymphedema Therapy New precaution - to improve, our physical therapists will perform initial evaluation of pt's status u francesco admission and devise an individualized program for Patient precaution education Poor balance - to improve, our physical therapists will perform initial evaluation of pt's status upo n admission and devise an individualized program for Balance Training Poor endurance - to improve, our physical therapists will perform initial evaluation of pt's status u francesco admission and devise an individualized program for Endurance Training Achieving independence - to improve, our physical therapists will perform initial evaluation of pt's status upon admission and devise an individualized program for Community Reintegration Activities - Occupational Therapy ADL deficits - to improve, our occupation therapists will perform initial evaluation of pt's status u francesco admission and devise an individualized program for Bathing, Bed mobility, Community Reintegration , Cooking, Dressing, Eating, Fine Motor Skills, Grooming, Homemaking, Kitchen Mobility, Laundry, Radha ent Education, Safety Awareness, Splinting - Positioning, Transfers(Toilet, Tub, Shower), and Wheel C hair Management Need for health care marketing specialist - to improve, our occupation therapists will perform initial evaluation of pt's s tatus upon admission and devise an individualized program for Caregiver Training MEDICAL PLAN: - Diet Type Start Regular - Diet - Liquid Texture Start Regular - Tube Feed Start N/A - Bladder care per protocol - Weight Bearing Precaution WBAT right LE - Skin care per protocol - Other See attached MAR (Medication Administration Record) - Diet - Solid Texture Regular - Shower shower DISCHARGE PLAN: - Estimated Length of Stay (days) 17. - Consensus on plan Discharge plan has been discussed with primary caregiver. Patient/Family is in agreement with the jessica n. Primary caregiver is in agreement with the plan. - Patient/Family Goals Return home independently. - Planned Living Setting Upon Discharge Home, to live with Family/Relatives. Transitional Living. SIGNATURE PANEL: (CDT)
--- NOTE | 2021-02-05 19:19 | PAPE ---
POST ADMISSION PHYSICIAN EVALUATION PATIENT: [facility] MR# [id number] REFERRING DOCTOR ORLANDO Galvez SR, MD EVALUATION DATE AND TIME 02/05/2021 19:18 (CDT) NAME ROSY SANCHES DATE OF 1940 AGE 80 PHONE N# [id number] GENDER female EVALUATING PHYSICIAN Dr. Jose Martin Lozano M.D. ADMISSION DIAGNOSIS: ACUTE RIGHT FRONTAL STROKE ONSET DATE 01/25/2021 POST-ADMISSION FUNCTIONAL/MEDICAL STATUS: - Bladder Same accident frequency: 7-Ind - No accidents in the past 7 days - Bowel Same accident frequency: 7-Ind - No accidents in the past 7 days - Walking Same score based on distance walked: 0(N/A) Same score based on distance walked: 2(50-149ft) - Wheelchair Same score based on distance traveled: 0(N/A) STATUS CHANGE EVALUATION: No change in Functional or Medical Status is identified compared with Pre-Admission screening. PATIENT NEEDS CLOSE MEDICAL SUPERVISION BY A REHABILITATION PHYSICIAN FOR: Coordination of Treatment Team PATIENT REQUIRES 24X7 REHAB NURSING FOR MEDICAL AND FUNCTIONAL MGT. OF THE FOLLOWING DEFICITS: Disease Management Medication Management Patient/Family Education Providing Safe Environment PATIENT REQUIRES INTENSIVE, COORDINATED INTERDISCIPLINARY APPROACH TO REHAB: Arranging Home Equipment/Services Discharge Planning Family Intervention/Training Early Morning Babysitter/Case Management LIST OF IDENTIFIED AND POTENTIAL PROBLEMS: Alteration in leisure activities Bladder, Incontinence Bowel, Incontinence Infection, Actual or Potential Mobility Impaired Pain, Alteration in Comfort Self Care Deficit Skin Integrity, Actual or Potential Urinary Tract Infection (UTI), Actual or Potential PATIENT COULD BE AT RISK FOR COMPLICATIONS FROM ADVERSE MEDICAL CONDITIONS DUE TO HIS/HER COMORBIDITI ES AND THE RIGORS OF THE INTENSIVE REHABILLITATION PROGRAM. METHODS OR INTERVENTIONS TO AVOID COMPLIC ATIONS INCLUDE: - Bleeding Stroke patients assessed for lethargy or change in status. - Infection Clinical staff to assess and manage the signs and symptoms of infection including fever, redness, war mth, etc. - Urinary Tract Infection - Aspiration Clinical staff will assess and manage coughing, drooling, congestion. - Falls Patient will be evaluated for Fall Precautions and will be placed on Fall Precautions as indicated pe r protocol. - Skin Breakdown Nursing will assess skin daily using assessment tool and will place on Skin Breakdown Precautions as indicated per protocol. - Pain Clinical staff may employ non-medication methods such as massage, distraction, decrease stimulus, etc . as needed. Clinical staff will assess patient's pain level every shift per protocol to assess and e nsure pain management effectiveness. Medications will be given and the pain level re-assessed. PRELIMINARY PLAN OF CARE: - Physical Therapy Patient needs Physical Therapy for a daily minimum of 1.5 hours at least 5 out of 7 days, to improve: Mobility, Strengthening, Transfers, Stretching, ROM, Endurance, Ability to manage stairs, Gait, and Balance. - Speech Therapy Patient needs Speech Therapy for a daily minimum of 0.5 hours at least 5 out of 7 days, to improve: S wallowing, Cognition, Language Skills, and Compensatory Strategies. - Rehabilitation Nursing Patient requires 24x7 Rehabilitation Nursing for: Pain Issues, Identifying and preventing risk factor s, Monitoring and reporting current medical conditions, Assisting with ambulation and transfer, Kylah ting with all ADL-s, Teaching patients about disease process and medications, Family teaching, Provid ing safe environment, Bowel and Bladder Issues, Skin Integrity, and Medication Management. Patient needs Early Morning Babysitter and/or Case Management for: Discharge Planning, Arranging Home Equipmen t or Services, and Family Interventions. - Dietary and Nutrition Services Patient needs Dietary and Nutrition Services for: Adequate Nutrition, Nutritional Supplements, and Nu tritional Education. - Occupational Therapy Patient needs Occupational Therapy for a daily minimum of 1.5 hours at least 5 out of 7 days, to impr ove Activities of Daily Living, including: Eating, Grooming, Bathing, Dressing, Toileting, Toilet Tra nsfers, Community Reintegration, Higher functional activities, Adaptive Equipment, Splinting, Househo ld Tasks, and Other activities as determined. QI SCORES: - Self-Care A. Eating 03-Partial/moderate assistance B. Oral hygiene 03-Partial/moderate assistance C. Toileting hygiene 03-Partial/moderate assistance E. Shower/bathe self F. Upper body dressing 03-Partial/moderate assistance G. Lower body dressing 03-Partial/moderate assistance H. Putting on/taking off footwear 88-Not attempted due to medical condition or safety concerns - Mobility A. Roll left and right 03-Partial/moderate assistance B. Sit to lying 03-Partial/moderate assistance C. Lying to sitting on side of bed 03-Partial/moderate assistance D. Sit to stand 03-Partial/moderate assistance E. Chair/hzo-yu-gsuxl transfer 03-Partial/moderate assistance F. Toilet transfer 03-Partial/moderate assistance G. Car transfer 88-Not attempted due to medical condition or safety concerns I. Walk 10 feet 03-Partial/moderate assistance J. Walk 50 feet with two turns 88-Not attempted due to medical condition or safety concerns K. Walk 150 feet 88-Not attempted due to medical condition or safety concerns L. Walking 10 feet on uneven surfaces 88-Not attempted due to medical condition or safety concerns M. 1 step (curb) 88-Not attempted due to medical condition or safety concerns N. 4 steps 88-Not attempted due to medical condition or safety concerns O. 12 steps 88-Not attempted due to medical condition or safety concerns P. Picking up object 88-Not attempted due to medical condition or safety concerns R. Wheel 50 feet with two turns 88-Not attempted due to medical condition or safety concerns S. Wheel 150 feet 88-Not attempted due to medical condition or safety concerns - Bladder and Bowel Bladder continence Bowel continence - Endurance Good - Balance Fair - Safety Awareness Fair POTENTIAL FUNCTIONAL GOALS FOR PATIENT TO ACHIEVE BY DISCHARGE: - Safety Precaution Patient will remain free from falls or injury at time of discharge. - Bed Mobility Patient will perform bed mobility at 4-Christiano level of assistance. - Transfers Patient will complete transfers from bed to chair at 4-Christiano level of assistance. - Mobility Patient will ambulate 150 ft with 4-Christiano level of assistance with RW. PATIENT REHAB POTENTIAL Paty SANCHES is able and expected to receive 3 hours of individualized therapy daily on at least 5 of every 7 days Paty SANCHES's prognosis for significant practical improvement within a reasonable period of time appe ars Good Expected level of measurable improvement will be of a practical value to Paty SANCHES's functional cap acity or adaptations to impairments Has a viable Discharge Plan Medically appropriate; condition is sufficiently stable to participate in intensive rehab program DISCHARGE PLAN: - Estimated Length of Stay (days) 17. - Consensus on plan Discharge plan has been discussed with primary caregiver. Patient/Family is in agreement with the jessica n. Primary caregiver is in agreement with the plan. - Patient/Family Goals Return home independently. - Planned Living Setting Upon Discharge Home, to live with Family/Relatives. Transitional Living. CONCLUSION ON REHABILITATION NECESSITY: I have evaluated patient's pre-admission functional status and, comparing it to the patient's post-ad mission functional status now, I conclude that the pre-admission assessment was accurate. Patient's c ondition on admission supports the medical necessity of admission to IRF. It is safe to proceed with patient's therapy program. SIGNATURE PANEL: (CDT)
[2021-02-05] MEDS: ROSUVASTATIN 10 MG TAB PO SCH (20:34)
[2021-02-06] MEDS: DOCUSATE NA 100 MG CAP PO SCH (08:00)
[2021-02-06] MEDS: VITAMIN D 1000 UNIT TAB PO SCH (08:25)
[2021-02-06] MEDS: APIXABAN 5 MG TABLET PO SCH ×2 (08:26→20:39)
[2021-02-06] MEDS: FUROSEMIDE 20 MG TABLET PO SCH (08:26)
[2021-02-06] MEDS: LOSARTAN POTASSIUM 50 MG TABLET PO SCH (08:27)
[2021-02-06] MEDS: AMLODIPINE 5 MG TAB PO SCH ×2 (08:27→20:39)
[2021-02-06] MEDS: levoFLOXacin 250 MG TAB PO SCH (08:27)
[2021-02-06] MEDS: FLUOXETINE 20 MG CAP PO SCH (08:27)
[2021-02-06] MEDS: LIDOCAINE 4% PATCH TOP SCH (08:28)
[2021-02-06] MEDS: ACETAMINOPHEN 500 MG TAB PO PRN ×2 (17:17→23:54)
[2021-02-06] MEDS: ROSUVASTATIN 10 MG TAB PO SCH (20:38)
[2021-02-06] MEDS: CRANBERRY FRUIT EXTRACT 200 MG CAP PO SCH (20:38)
[2021-02-07 06:10] LABS: BUN Blood Urea Nitrogen 16 mg/dL (7-18); Bicarbonate 30 mmol/L (21-32); Glucose Level 86 mg/dL (74-106); Potassium 4.1 mmol/L (3.5-5.1); Sodium Level 142 mmol/L (136-145)
[2021-02-07] MEDS: CRANBERRY FRUIT EXTRACT 200 MG CAP PO SCH ×2 (08:04→21:10)
[2021-02-07] MEDS: AMLODIPINE 5 MG TAB PO SCH ×2 (08:04→21:11)
[2021-02-07] MEDS: APIXABAN 5 MG TABLET PO SCH ×2 (08:05→21:10)
[2021-02-07] MEDS: FUROSEMIDE 20 MG TABLET PO SCH (08:05)
[2021-02-07] MEDS: FLUOXETINE 20 MG CAP PO SCH (08:05)
[2021-02-07] MEDS: levoFLOXacin 250 MG TAB PO SCH (08:06)
[2021-02-07] MEDS: LOSARTAN POTASSIUM 50 MG TABLET PO SCH (08:06)
[2021-02-07] MEDS: VITAMIN D 1000 UNIT TAB PO SCH (08:06)
[2021-02-07] MEDS: LIDOCAINE 4% PATCH TOP SCH ×2 (09:08→14:05)
--- NOTE | 2021-02-07 17:55 | R.PN ---
PROGRESS NOTES ENCOUNTER DATE AND TIME: 02/07/2021 17:48 (CDT) NAME ROSY SANCHES DATE OF : 1940 DATE OF ADMISSION: 02/04/2021 20:55 (CDT) ACUTE RIGHT FRONTAL STROKECHIEF COMPLAINT: Left brain stroke with right sided weakness SUBJECTIVE: Pt denied any Shortness of Breath. Pt denied any depression. CBC with differential is normal. Prealbumin is low at 13.1, COVID-19 is negative. Ambulated 104' with contact guard assistance using a rolling walker. VITAL SIGNS Temperature: 96 F SBP/DBP: 152/81 Pulse: 71 Resp: 18 MEDICATION ALLERGIES: PENICILLIN ENVIRONMENTAL ALLERGIES: - Substance Allergies None Known - Other Allergies None Known NURSING: - Shower allowing shower - Bladder care per protocol - Skin care per protocol PRECAUTIONS: - Weight Bearing Precaution WBAT right LE ACTIVITIES OOB only with supervision THERAPIES: - Occupational Therapy Cognitive Retraining. Visual Perceptual Training. - Dietary and Nutrition Adequate Nutrition. Nutritional Education. Nutritional Supplements. - Speech Therapy Cognitive Training. Expressive Language Skills. Memory Strategies. Receptive Language Skills. Speech Intelligibility Training. PHYSICAL EXAM - Gen Alert and awake Lying in bed No apparent distress Oriented to: person, time, and place - Skin No breakdown Normacephalic - Eyes No abnormalities - ENMT No abnormalities - Neck No abnormalities - CVS RRR - Chest Clear - Abd + bowel sounds - GI Soft Deferred - No abnormalities - Ext No significant edema - MSK 4+/5 weakness in right upper and lower extremities. - Neuro 4/5 strength right upper and lower extremities. - Psych Mild anxiety. ASSESSMENT: Pt. is a 80 yo Right-handed female.On 01/25/2021 Pt. presented to [facility] with sudden onset of righ t-side weakness.On 01/25/2021 she was admitted to [facility] with diagnosis ACUTE RIGHT FRONTAL STROKE .Her impairment category is Stroke 01 - Right Body (Left Brain) (01.2).Pre-morbidly, Pt. was indepen dent/mod-I in Locomotion, Balance, Safety Awareness, and Self-Care; and she had good Endurance, Commu nication, and Social Cognition.Currently, she has deficits of Locomotion, Balance, Safety Awareness, Transfers Control, Sphincter Control, Communication, Self-Care, and Endurance.Pt. is now referred to [facility] for acute in-patient rehabilitation in order to maximize patient's functional independence in activities of daily living, strength, ROM, and mobility.- Rehab Goal Patient has realistic goal of being discharged at assistance level 7-Ind to reside at Home with Fami ly/Relatives. CBC with differential and BMP are essentially normal. Prealbumin is low at 13.1.MDM/PLAN: - Physical Therapy Gait dysfunction - to improve, our physical therapists will perform initial evaluation of pt's statu s upon admission and devise an individualized program for Gait Training, and Wheel Chair mobility Inability to transfer - to improve, our physical therapists will perform initial evaluation of pt's status upon admission and devise an individualized program for Bed mobility Need for home safety evaluation - to improve, our physical therapists will perform initial evaluatio n of pt's status upon admission and devise an individualized program for Home Evaluation Need in caregiver upon discharge - to improve, our physical therapists will perform initial evaluati on of pt's status upon admission and devise an individualized program for Caregiver Training Edema - to improve, our physical therapists will perform initial evaluation of pt's status upon admis radha and devise an individualized program for Elevation Training, and Lymphedema Therapy New precaution - to improve, our physical therapists will perform initial evaluation of pt's status upon admission and devise an individualized program for Patient precaution education Poor balance - to improve, our physical therapists will perform initial evaluation of pt's status up on admission and devise an individualized program for Balance Training Poor endurance - to improve, our physical therapists will perform initial evaluation of pt's status upon admission and devise an individualized program for Endurance Training Achieving independence - to improve, our physical therapists will perform initial evaluation of pt's status upon admission and devise an individualized program for Community Reintegration Activities - Occupational Therapy ADL deficits - to improve, our occupation therapists will perform initial evaluation of pt's status upon admission and devise an individualized program for Bathing, Bed mobility, Community Reintegratio n, Cooking, Dressing, Eating, Fine Motor Skills, Grooming, Homemaking, Kitchen Mobility, Laundry, Pat ient Education, Safety Awareness, Splinting - Positioning, Transfers(Toilet, Tub, Shower), and Wheel Chair Management Need for resident care provider - to improve, our occupation therapists will perform initial evaluation of pt's status upon admission and devise an individualized program for Caregiver Training - Other See attached MAR (Medication Administration Record) - Diet Type Continue Regular - Diet - Liquid Texture Continue Regular - Tube Feed Continue N/A - Bladder care per protocol - Weight Bearing Precaution WBAT right LE - Skin care per protocol - Diet - Solid Texture Continue Regular - Shower allowing shower for Dementia, TBI, Stroke, or others FUNCTIONAL STATUS: UPDATED AT WEEKLY TEAM CONFERENCE - Bladder Same accident frequency: 7-Ind - No accidents in the past 7 days - Bowel Same accident frequency: 7-Ind - No accidents in the past 7 days - Walking Same score based on distance walked: 0(N/A) Same score based on distance walked: 2(50-149ft) - Wheelchair Same score based on distance traveled: 0(N/A) FUNCTIONAL STATUS: - Self-Care A. Eating Tanvi B. Grooming Tanvi C. Bathing Christiano D. Dressing - Upper Christiano E. Dressing - Lower Christiano F. Toileting Christiano - Sphincter Control G. Bladder control Tanvi H. Bowel control Tanvi - Transfers Control I. Bed/Chair/Wheelchair sup J. Toilet sup K. Tub/Shower Christiano - Locomotion L. Walk/Wheelchair (B) Christiano M. Stairs ADNO - Communication N. Comprehension (B) sup O. Expression (B) sup - Social Cognition P. Social Interaction sup Q. Problem Solving Christiano R. Memory Christiano - Endurance Fair - Balance Fair - Safety Awareness Fair QI SCORES: - Self-Care A. Eating 03-Partial/moderate assistance B. Oral hygiene 03-Partial/moderate assistance C. Toileting hygiene 03-Partial/moderate assistance E. Shower/bathe self F. Upper body dressing 03-Partial/moderate assistance G. Lower body dressing 03-Partial/moderate assistance H. Putting on/taking off footwear 88-Not attempted due to medical condition or safety concerns - Mobility A. Roll left and right 03-Partial/moderate assistance B. Sit to lying 03-Partial/moderate assistance C. Lying to sitting on side of bed 03-Partial/moderate assistance D. Sit to stand 03-Partial/moderate assistance E. Chair/yec-pg-nipea transfer 03-Partial/moderate assistance F. Toilet transfer 03-Partial/moderate assistance G. Car transfer 88-Not attempted due to medical condition or safety concerns I. Walk 10 feet 03-Partial/moderate assistance J. Walk 50 feet with two turns 88-Not attempted due to medical condition or safety concerns K. Walk 150 feet 88-Not attempted due to medical condition or safety concerns L. Walking 10 feet on uneven surfaces 88-Not attempted due to medical condition or safety concerns M. 1 step (curb) 88-Not attempted due to medical condition or safety concerns N. 4 steps 88-Not attempted due to medical condition or safety concerns O. 12 steps 88-Not attempted due to medical condition or safety concerns P. Picking up object 88-Not attempted due to medical condition or safety concerns R. Wheel 50 feet with two turns 88-Not attempted due to medical condition or safety concerns S. Wheel 150 feet 88-Not attempted due to medical condition or safety concerns - Bladder and Bowel Bladder continence Bowel continence - Endurance Good - Balance Fair - Safety Awareness Fair CURRENT [facility]. DEFICITS: Self-Care, Mobility, Balance, and Safety Awareness SIGNATURE PANEL: (CDT)
[2021-02-07] MEDS: ENSURE HIGH PROTEIN 237 ML CAN PO SCH (21:11)
[2021-02-07] MEDS: ROSUVASTATIN 10 MG TAB PO SCH (21:11)
[2021-02-08] MEDS: ACETAMINOPHEN 500 MG TAB PO PRN (02:23)
[2021-02-08] MEDS: LIDOCAINE 4% PATCH TOP SCH (07:01)
[2021-02-08] MEDS: AMLODIPINE 5 MG TAB PO SCH ×2 (08:00→19:49)
[2021-02-08] MEDS: LOSARTAN POTASSIUM 50 MG TABLET PO SCH (08:00)
[2021-02-08] MEDS: VITAMIN D 1000 UNIT TAB PO SCH (08:03)
[2021-02-08] MEDS: FUROSEMIDE 20 MG TABLET PO SCH (08:03)
[2021-02-08] MEDS: FLUOXETINE 20 MG CAP PO SCH (08:03)
[2021-02-08] MEDS: CRANBERRY FRUIT EXTRACT 200 MG CAP PO SCH ×2 (08:03→19:47)
[2021-02-08] MEDS: APIXABAN 5 MG TABLET PO SCH ×2 (08:03→19:48)
[2021-02-08] MEDS: levoFLOXacin 250 MG TAB PO SCH (08:04)
[2021-02-08] MEDS: ENSURE HIGH PROTEIN 237 ML CAN PO SCH ×2 (09:22→19:48)
--- NOTE | 2021-02-08 17:24 | R.PN ---
PROGRESS NOTES ENCOUNTER DATE AND TIME: 02/08/2021 17:21 (CDT) NAME ROSY SANCHES DATE OF : 1940 DATE OF ADMISSION: 02/04/2021 20:55 (CDT) ACUTE RIGHT FRONTAL STROKECHIEF COMPLAINT: Left brain stroke with right sided weakness SUBJECTIVE: Pt denied any Shortness of Breath. Pt denied any depression. CBC with differential is normal. Prealbumin is low at 13.1, COVID-19 is negative. Ambulated 45' with moderate to maximum assistance using a rolling walker. VITAL SIGNS Temperature: 98.1 F SBP/DBP: 144/47 Pulse: 64 Resp: 18 MEDICATION ALLERGIES: PENICILLIN ENVIRONMENTAL ALLERGIES: - Substance Allergies None Known - Other Allergies None Known NURSING: - Shower allowing shower - Bladder care per protocol - Skin care per protocol PRECAUTIONS: - Weight Bearing Precaution WBAT right LE ACTIVITIES OOB only with supervision THERAPIES: - Occupational Therapy Cognitive Retraining. Visual Perceptual Training. - Dietary and Nutrition Adequate Nutrition. Nutritional Education. Nutritional Supplements. - Speech Therapy Cognitive Training. Expressive Language Skills. Memory Strategies. Receptive Language Skills. Speech Intelligibility Training. PHYSICAL EXAM - Gen Alert and awake Lying in bed No apparent distress Oriented to: person, time, and place - Skin No breakdown Normacephalic - Eyes No abnormalities - ENMT No abnormalities - Neck No abnormalities - CVS RRR - Chest Clear - Abd + bowel sounds - GI Soft Deferred - No abnormalities - Ext No significant edema - MSK 4+/5 weakness in right upper and lower extremities. - Neuro 4/5 strength right upper and lower extremities. - Psych Mild anxiety. ASSESSMENT: Pt. is a 80 yo Right-handed female.On 01/25/2021 Pt. presented to [facility] with sudden onset of righ t-side weakness.On 01/25/2021 she was admitted to [facility] with diagnosis ACUTE RIGHT FRONTAL STROKE .Her impairment category is Stroke 01 - Right Body (Left Brain) (01.2).Pre-morbidly, Pt. was indepen dent/mod-I in Locomotion, Balance, Safety Awareness, and Self-Care; and she had good Endurance, Commu nication, and Social Cognition.Currently, she has deficits of Locomotion, Balance, Safety Awareness, Transfers Control, Sphincter Control, Communication, Self-Care, and Endurance.Pt. is now referred to [facility] for acute in-patient rehabilitation in order to maximize patient's functional independence in activities of daily living, strength, ROM, and mobility.- Rehab Goal Patient has realistic goal of being discharged at assistance level 7-Ind to reside at Home with Fami ly/Relatives. CBC with differential and BMP are essentially normal. Prealbumin is low at 13.1.MDM/PLAN: - Physical Therapy Gait dysfunction - to improve, our physical therapists will perform initial evaluation of pt's statu s upon admission and devise an individualized program for Gait Training, and Wheel Chair mobility Inability to transfer - to improve, our physical therapists will perform initial evaluation of pt's status upon admission and devise an individualized program for Bed mobility Need for home safety evaluation - to improve, our physical therapists will perform initial evaluatio n of pt's status upon admission and devise an individualized program for Home Evaluation Need in caregiver upon discharge - to improve, our physical therapists will perform initial evaluati on of pt's status upon admission and devise an individualized program for Caregiver Training Edema - to improve, our physical therapists will perform initial evaluation of pt's status upon admi ssion and devise an individualized program for Elevation Training, and Lymphedema Therapy New precaution - to improve, our physical therapists will perform initial evaluation of pt's status upon admission and devise an individualized program for Patient precaution education Poor balance - to improve, our physical therapists will perform initial evaluation of pt's status up on admission and devise an individualized program for Balance Training Poor endurance - to improve, our physical therapists will perform initial evaluation of pt's status upon admission and devise an individualized program for Endurance Training Achieving independence - to improve, our physical therapists will perform initial evaluation of pt's status upon admission and devise an individualized program for Community Reintegration Activities - Occupational Therapy ADL deficits - to improve, our occupation therapists will perform initial evaluation of pt's status upon admission and devise an individualized program for Bathing, Bed mobility, Community Reintegratio n, Cooking, Dressing, Eating, Fine Motor Skills, Grooming, Homemaking, Kitchen Mobility, Laundry, Pat ient Education, Safety Awareness, Splinting - Positioning, Transfers(Toilet, Tub, Shower), and Wheel Chair Management Need for residential child care counselor - to improve, our occupation therapists will perform initial evaluation of pt's status upon admission and devise an individualized program for Caregiver Training - Other See attached MAR (Medication Administration Record) - Diet Type Continue Regular - Diet - Liquid Texture Continue Regular - Tube Feed Continue N/A - Bladder care per protocol - Weight Bearing Precaution WBAT right LE - Skin care per protocol - Diet - Solid Texture Continue Regular - Shower allowing shower for Dementia, TBI, Stroke, or others FUNCTIONAL STATUS: UPDATED AT WEEKLY TEAM CONFERENCE - Bladder Same accident frequency: 7-Ind - No accidents in the past 7 days - Bowel Same accident frequency: 7-Ind - No accidents in the past 7 days - Walking Same score based on distance walked: 0(N/A) Same score based on distance walked: 2(50-149ft) - Wheelchair Same score based on distance traveled: 0(N/A) FUNCTIONAL STATUS: - Self-Care A. Eating Tanvi B. Grooming Tanvi C. Bathing Christiano D. Dressing - Upper Christiano E. Dressing - Lower Christiano F. Toileting Christiano - Sphincter Control G. Bladder control Tanvi H. Bowel control Tanvi - Transfers Control I. Bed/Chair/Wheelchair sup J. Toilet sup K. Tub/Shower Christiano - Locomotion L. Walk/Wheelchair (B) Christiano M. Stairs ADNO - Communication N. Comprehension (B) sup O. Expression (B) sup - Social Cognition P. Social Interaction sup Q. Problem Solving Christiano R. Memory Christiano - Endurance Fair - Balance Fair - Safety Awareness Fair QI SCORES: - Self-Care A. Eating 03-Partial/moderate assistance B. Oral hygiene 03-Partial/moderate assistance C. Toileting hygiene 03-Partial/moderate assistance E. Shower/bathe self F. Upper body dressing 03-Partial/moderate assistance G. Lower body dressing 03-Partial/moderate assistance H. Putting on/taking off footwear 88-Not attempted due to medical condition or safety concerns - Mobility A. Roll left and right 03-Partial/moderate assistance B. Sit to lying 03-Partial/moderate assistance C. Lying to sitting on side of bed 03-Partial/moderate assistance D. Sit to stand 03-Partial/moderate assistance E. Chair/jgs-nf-hicsy transfer 03-Partial/moderate assistance F. Toilet transfer 03-Partial/moderate assistance G. Car transfer 88-Not attempted due to medical condition or safety concerns I. Walk 10 feet 03-Partial/moderate assistance J. Walk 50 feet with two turns 88-Not attempted due to medical condition or safety concerns K. Walk 150 feet 88-Not attempted due to medical condition or safety concerns L. Walking 10 feet on uneven surfaces 88-Not attempted due to medical condition or safety concerns M. 1 step (curb) 88-Not attempted due to medical condition or safety concerns N. 4 steps 88-Not attempted due to medical condition or safety concerns O. 12 steps 88-Not attempted due to medical condition or safety concerns P. Picking up object 88-Not attempted due to medical condition or safety concerns R. Wheel 50 feet with two turns 88-Not attempted due to medical condition or safety concerns S. Wheel 150 feet 88-Not attempted due to medical condition or safety concerns - Bladder and Bowel Bladder continence Bowel continence - Endurance Good - Balance Fair - Safety Awareness Fair CURRENT [facility]. DEFICITS: Self-Care, Mobility, Balance, and Safety Awareness SIGNATURE PANEL: (CDT)
[2021-02-08] MEDS: ROSUVASTATIN 10 MG TAB PO SCH (19:47)
[2021-02-09] MEDS: ACETAMINOPHEN 500 MG TAB PO PRN ×2 (00:07→08:34)
[2021-02-09] MEDS: AMLODIPINE 5 MG TAB PO SCH ×2 (08:00→20:01)
[2021-02-09] MEDS: LIDOCAINE 4% PATCH TOP SCH (08:30)
[2021-02-09] MEDS: VITAMIN D 1000 UNIT TAB PO SCH (08:31)
[2021-02-09] MEDS: CRANBERRY FRUIT EXTRACT 200 MG CAP PO SCH ×2 (08:31→19:59)
[2021-02-09] MEDS: FLUOXETINE 20 MG CAP PO SCH (08:34)
[2021-02-09] MEDS: levoFLOXacin 250 MG TAB PO SCH (08:34)
[2021-02-09] MEDS: FUROSEMIDE 20 MG TABLET PO SCH (08:35)
[2021-02-09] MEDS: APIXABAN 5 MG TABLET PO SCH ×2 (08:35→20:01)
[2021-02-09] MEDS: LOSARTAN POTASSIUM 50 MG TABLET PO SCH (12:11)
[2021-02-09] MEDS: ENSURE HIGH PROTEIN 237 ML CAN PO SCH ×2 (12:12→20:02)
[2021-02-09] MEDS: ROSUVASTATIN 10 MG TAB PO SCH (19:59)
[2021-02-10 06:13] LABS: Basophils % 0.4 % (0-1.3); Hematocrit 37.6 % (36.0-45.0); Lymphocytes % 22.1 % (15.3-44.8); MPV 8.1 fL (7.6-11.3); RBC Red Blood Cell Count 4.59 M/uL (3.86-4.86)
[2021-02-10 06:35] LABS: Albumin 3.1 g/dL (3.4-5.0); Prealbumin 19.5 mg/dL (20-40)
[2021-02-10 06:36] LABS: Magnesium 2.3 mg/dL (1.8-2.4); Potassium 4.1 mmol/L (3.5-5.1)
[2021-02-10] MEDS: LIDOCAINE 4% PATCH TOP SCH (07:42)
[2021-02-10] MEDS: FUROSEMIDE 20 MG TABLET PO SCH (07:42)
[2021-02-10] MEDS: LOSARTAN POTASSIUM 50 MG TABLET PO SCH (07:43)
[2021-02-10] MEDS: VITAMIN D 1000 UNIT TAB PO SCH (08:28)
[2021-02-10] MEDS: CRANBERRY FRUIT EXTRACT 200 MG CAP PO SCH ×2 (08:28→20:10)
[2021-02-10] MEDS: FLUOXETINE 20 MG CAP PO SCH (08:29)
[2021-02-10] MEDS: APIXABAN 5 MG TABLET PO SCH ×2 (08:29→20:11)
[2021-02-10] MEDS: ACETAMINOPHEN 500 MG TAB PO PRN ×2 (08:30→15:41)
[2021-02-10] MEDS: AMLODIPINE 5 MG TAB PO SCH ×2 (12:28→20:10)
[2021-02-10] MEDS: ENSURE HIGH PROTEIN 237 ML CAN PO SCH ×2 (12:29→20:11)
[2021-02-10] MEDS: METHYL SALICYLATE/MENTHOL 3 OZ TUBE TOP PRN (17:45)
--- NOTE | 2021-02-10 18:29 | R.PN ---
PROGRESS NOTES ENCOUNTER DATE AND TIME: 02/10/2021 18:23 (CDT) NAME ROSY SANCHES DATE OF : 1940 DATE OF ADMISSION: 02/04/2021 20:55 (CDT) ACUTE RIGHT FRONTAL STROKECHIEF COMPLAINT: Right brain stroke with left sided weakness SUBJECTIVE: Pt denied any Shortness of Breath. Pt denied any depression. CBC with differential is normal. Prealbumin increased to 19.5, COVID-19 is negative. Ambulated 130' with minimum assistance using a rolling walker. VITAL SIGNS Temperature: 97.6 F SBP/DBP: 136/56 Pulse: 62 Resp: 18 MEDICATION ALLERGIES: PENICILLIN ENVIRONMENTAL ALLERGIES: - Substance Allergies None Known - Other Allergies None Known NURSING: - Shower allowing shower - Bladder care per protocol - Skin care per protocol PRECAUTIONS: - Weight Bearing Precaution WBAT right LE ACTIVITIES OOB only with supervision THERAPIES: - Occupational Therapy Cognitive Retraining. Visual Perceptual Training. - Dietary and Nutrition Adequate Nutrition. Nutritional Education. Nutritional Supplements. - Speech Therapy Cognitive Training. Expressive Language Skills. Memory Strategies. Receptive Language Skills. Speech Intelligibility Training. PHYSICAL EXAM - Gen Alert and awake Lying in bed No apparent distress Oriented to: person, time, and place - Skin No breakdown Normacephalic - Eyes No abnormalities - ENMT No abnormalities - Neck No abnormalities - CVS RRR - Chest Clear - Abd + bowel sounds - GI Soft Deferred - No abnormalities - Ext No significant edema - MSK 4+/5 weakness in right upper and lower extremities. - Neuro 4/5 strength right upper and lower extremities. - Psych Mild anxiety. ASSESSMENT: Pt. is a 80 yo Right-handed female.On 01/25/2021 Pt. presented to [facility] with sudden onset of righ t-side weakness.On 01/25/2021 she was admitted to [facility] with diagnosis ACUTE RIGHT FRONTAL STROKE .Her impairment category is Stroke 01 - Right Body (Left Brain) (01.2).Pre-morbidly, Pt. was indepen dent/mod-I in Locomotion, Balance, Safety Awareness, and Self-Care; and she had good Endurance, Commu nication, and Social Cognition.Currently, she has deficits of Locomotion, Balance, Safety Awareness, Transfers Control, Sphincter Control, Communication, Self-Care, and Endurance.Pt. is now referred to [facility] for acute in-patient rehabilitation in order to maximize patient's functional independence in activities of daily living, strength, ROM, and mobility.- Rehab Goal Patient has realistic goal of being discharged at assistance level 7-Ind to reside at Home with Fami ly/Relatives. CBC with differential and BMP are essentially normal. Prealbumin is low at 13.1.MDM/PLAN: - Physical Therapy Gait dysfunction - to improve, our physical therapists will perform initial evaluation of pt's statu s upon admission and devise an individualized program for Gait Training, and Wheel Chair mobility Inability to transfer - to improve, our physical therapists will perform initial evaluation of pt's status upon admission and devise an individualized program for Bed mobility Need for home safety evaluation - to improve, our physical therapists will perform initial evaluatio n of pt's status upon admission and devise an individualized program for Home Evaluation Need in caregiver upon discharge - to improve, our physical therapists will perform initial evaluati on of pt's status upon admission and devise an individualized program for Caregiver Training Edema - to improve, our physical therapists will perform initial evaluation of pt's status upon admi ssion and devise an individualized program for Elevation Training, and Lymphedema Therapy New precaution - to improve, our physical therapists will perform initial evaluation of pt's status upon admission and devise an individualized program for Patient precaution education Poor balance - to improve, our physical therapists will perform initial evaluation of pt's status up on admission and devise an individualized program for Balance Training Poor endurance - to improve, our physical therapists will perform initial evaluation of pt's status upon admission and devise an individualized program for Endurance Training Achieving independence - to improve, our physical therapists will perform initial evaluation of pt's status upon admission and devise an individualized program for Community Reintegration Activities - Occupational Therapy ADL deficits - to improve, our occupation therapists will perform initial evaluation of pt's status upon admission and devise an individualized program for Bathing, Bed mobility, Community Reintegratio n, Cooking, Dressing, Eating, Fine Motor Skills, Grooming, Homemaking, Kitchen Mobility, Laundry, Pat ient Education, Safety Awareness, Splinting - Positioning, Transfers(Toilet, Tub, Shower), and Wheel Chair Management Need for cattle care worker - to improve, our occupation therapists will perform initial evaluation of pt's status upon admission and devise an individualized program for Caregiver Training - Other See attached MAR (Medication Administration Record) - Diet Type Continue Regular - Diet - Liquid Texture Continue Regular - Tube Feed Continue N/A - Bladder care per protocol - Weight Bearing Precaution WBAT right LE - Skin care per protocol - Diet - Solid Texture Continue Regular - Shower allowing shower for Dementia, TBI, Stroke, or others FUNCTIONAL STATUS: UPDATED AT WEEKLY TEAM CONFERENCE - Bladder Same accident frequency: 7-Ind - No accidents in the past 7 days - Bowel Same accident frequency: 7-Ind - No accidents in the past 7 days - Walking Same score based on distance walked: 0(N/A) Same score based on distance walked: 2(50-149ft) - Wheelchair Same score based on distance traveled: 0(N/A) FUNCTIONAL STATUS: - Self-Care A. Eating Tanvi B. Grooming Tanvi C. Bathing Christiano D. Dressing - Upper Christiano E. Dressing - Lower Christiano F. Toileting Christiano - Sphincter Control G. Bladder control Tanvi H. Bowel control Tanvi - Transfers Control I. Bed/Chair/Wheelchair sup J. Toilet sup K. Tub/Shower Christiano - Locomotion L. Walk/Wheelchair (B) Christiano M. Stairs ADNO - Communication N. Comprehension (B) sup O. Expression (B) sup - Social Cognition P. Social Interaction sup Q. Problem Solving Christiano R. Memory Christiano - Endurance Fair - Balance Fair - Safety Awareness Fair QI SCORES: - Self-Care A. Eating 03-Partial/moderate assistance B. Oral hygiene 03-Partial/moderate assistance C. Toileting hygiene 03-Partial/moderate assistance E. Shower/bathe self F. Upper body dressing 03-Partial/moderate assistance G. Lower body dressing 03-Partial/moderate assistance H. Putting on/taking off footwear 88-Not attempted due to medical condition or safety concerns - Mobility A. Roll left and right 03-Partial/moderate assistance B. Sit to lying 03-Partial/moderate assistance C. Lying to sitting on side of bed 03-Partial/moderate assistance D. Sit to stand 03-Partial/moderate assistance E. Chair/kqz-bt-liqdo transfer 03-Partial/moderate assistance F. Toilet transfer 03-Partial/moderate assistance G. Car transfer 88-Not attempted due to medical condition or safety concerns I. Walk 10 feet 03-Partial/moderate assistance J. Walk 50 feet with two turns 88-Not attempted due to medical condition or safety concerns K. Walk 150 feet 88-Not attempted due to medical condition or safety concerns L. Walking 10 feet on uneven surfaces 88-Not attempted due to medical condition or safety concerns M. 1 step (curb) 88-Not attempted due to medical condition or safety concerns N. 4 steps 88-Not attempted due to medical condition or safety concerns O. 12 steps 88-Not attempted due to medical condition or safety concerns P. Picking up object 88-Not attempted due to medical condition or safety concerns R. Wheel 50 feet with two turns 88-Not attempted due to medical condition or safety concerns S. Wheel 150 feet 88-Not attempted due to medical condition or safety concerns - Bladder and Bowel Bladder continence Bowel continence - Endurance Good - Balance Fair - Safety Awareness Fair CURRENT [facility]. DEFICITS: Self-Care, Mobility, Balance, and Safety Awareness SIGNATURE PANEL: (CDT)
[2021-02-10 18:31] LABS: Urine Appearance CLEAR (Clear); Urine Bilirubin NEGATIVE (Negative); Urine Blood NEGATIVE (Negative); Urine Color YELLOW (Yellow); Urine Glucose NEGATIVE (Negative); Urine Protein NEGATIVE (Negative); Urine Specific Gravity <=1.005 (1.005-1.030); Urine Urobilinogen 0.2 mg/dL (0.2-1.0)
[2021-02-10 18:48] LABS: Urine Bacteria <20 /HPF (<20); Urine RBC NONE SEEN /HPF (NONE SEEN)
[2021-02-10] MEDS: ROSUVASTATIN 10 MG TAB PO SCH (20:10)
[2021-02-11] MEDS: FUROSEMIDE 20 MG TABLET PO SCH (07:56)
[2021-02-11] MEDS: ACETAMINOPHEN 500 MG TAB PO PRN ×2 (07:56→14:26)
[2021-02-11] MEDS: CRANBERRY FRUIT EXTRACT 200 MG CAP PO SCH ×2 (07:57→20:06)
[2021-02-11] MEDS: APIXABAN 5 MG TABLET PO SCH ×2 (07:57→20:06)
[2021-02-11] MEDS: FLUOXETINE 20 MG CAP PO SCH (07:57)
[2021-02-11] MEDS: LOSARTAN POTASSIUM 50 MG TABLET PO SCH (07:57)
[2021-02-11] MEDS: AMLODIPINE 5 MG TAB PO SCH ×2 (07:57→20:06)
[2021-02-11] MEDS: VITAMIN D 1000 UNIT TAB PO SCH (07:57)
[2021-02-11] MEDS: ENSURE HIGH PROTEIN 237 ML CAN PO SCH ×2 (07:58→20:07)
[2021-02-11] MEDS: LIDOCAINE 4% PATCH TOP SCH (08:46)
--- NOTE | 2021-02-11 10:04 | P.RH.PN ---
Estimated Length of Stay: 19 Expected Discharge Date: 02/22/21 Discharge Disposition Plan: Home Family Support: Yes Correction Goal: Mobility, Transfers, Self Care Vital Signs: Last Vital Signs Temp 98 F 02/10/21 20:00 Pulse 85 02/11/21 07:57 Resp 18 02/10/21 20:00 BP 130/62 02/11/21 07:57 Pulse Ox 98 02/10/21 20:00 Laboratory: Laboratory Last Values WBC 4.60 K/uL (4.3-10.9) 02/10/21 05:58 RBC 4.59 M/uL (3.86-4.86) 02/10/21 05:58 Hgb 12.6 g/dL (12.0-15.0) 02/10/21 05:58 Hct 37.6 % (36.0-45.0) 02/10/21 05:58 MCV 82.0 fL (80-100) 02/10/21 05:58 MCH 27.4 pg (27.0-35.0) 02/10/21 05:58 MCHC 33.4 g/dL (32.0-36.0) 02/10/21 05:58 RDW 13.9 % (12.1-15.2) 02/10/21 05:58 Plt Count 227 K/uL (152-406) 02/10/21 05:58 MPV 8.1 fL (7.6-11.3) 02/10/21 05:58 Neutrophils % 63.6 % (41.7-73.7) 02/10/21 05:58 Lymphocytes % 22.1 % (15.3-44.8) 02/10/21 05:58 Monocytes % 9.8 % (3.3-12.3) 02/10/21 05:58 Eosinophils % 4.1 % (0-4.4) 02/10/21 05:58 Basophils % 0.4 % (0-1.3) 02/10/21 05:58 Absolute Neutrophils 2.9 K/uL (1.8-8.0) 02/10/21 05:58 Absolute Lymphocytes 1.0 K/uL (0.7-4.9) 02/10/21 05:58 Absolute Monocytes 0.5 K/uL (0.1-1.3) 02/10/21 05:58 Absolute Eosinophils 0.2 K/uL (0-0.5) 02/10/21 05:58 Absolute Basophils 0.0 K/uL (0-0.5) 02/10/21 05:58 Sodium 143 mmol/L (136-145) 02/10/21 05:58 Potassium 4.1 mmol/L (3.5-5.1) 02/10/21 05:58 Chloride 108 mmol/L (98-107) H 02/10/21 05:58 Carbon Dioxide 32 mmol/L (21-32) 02/10/21 05:58 BUN 16 mg/dL (7-18) 02/10/21 05:58 Creatinine 0.65 mg/dL (0.55-1.3) 02/10/21 05:58 Estimated GFR 88 mL/min (=/>90) L 02/10/21 05:58 Glucose 85 mg/dL (74-106) 02/10/21 05:58 Calcium 9.2 mg/dL (8.5-10.1) 02/10/21 05:58 Magnesium 2.3 mg/dL (1.8-2.4) 02/10/21 05:58 Albumin 3.1 g/dL (3.4-5.0) L 02/10/21 05:58 Prealbumin 19.5 mg/dL (20-40) L 02/10/21 05:58 Urine Color Yellow (Yellow) 02/10/21 17:15 Urine Appearance Clear (Clear) 02/10/21 17:15 Urine pH 7.0 (5.0-7.0) 02/10/21 17:15 Ur Specific Franklin <=1.005 (1.005-1.030) 02/10/21 17:15 Glucose (UA)(Auto) Negative (Negative) 02/10/21 17:15 Urine Ketones Negative (Negative) 02/10/21 17:15 Urine Blood Negative (Negative) 02/10/21 17:15 Urine Nitrite Negative (Negative) 02/10/21 17:15 Urine Bilirubin Negative (Negative) 02/10/21 17:15 Urine Urobilinogen 0.2 mg/dL (0.2-1.0) 02/10/21 17:15 Ur Leukocyte Esterase Negative (Negative) 02/10/21 17:15 Urine RBC None seen /HPF (NONE SEEN) 02/10/21 17:15 Urine WBC <5 /HPF (<5) 02/10/21 17:15 Ur Squamous Epith Cells <5 /HPF (NONE SEEN) 02/10/21 17:15 Urine Bacteria <20 /HPF (<20) 02/10/21 17:15 Urine Culture Reflexed Not needed 02/10/21 17:15 Urine Total Protein Negative (Negative) 02/10/21 17:15 SARS-CoV-2 RNA (RT-PCR) Negative (NEGATIVE) 02/11/21 08:57 Weight: 183 lb Wound Present: No Closed Surgical Incision Present: No Negative Pressure Wound Therapy Present: No Physician Update: Labs reviewed and are stable. She is at moderate assistance with ADLs. Her functional transfers and walking are minimum assistance. Traveled 50 feet. She has delayed responses. Summary: Patient's care plan and supervisor intermediates goals have been reviewed and revised as necessary. Please see the Rehabilitation Signature page for all necessary signatures.
[2021-02-11] MEDS: METHYL SALICYLATE/MENTHOL 3 OZ TUBE TOP PRN (14:27)
[2021-02-11] MEDS: ROSUVASTATIN 10 MG TAB PO SCH (20:06)
[2021-02-12] MEDS: LIDOCAINE 4% PATCH TOP SCH (06:35)
[2021-02-12] MEDS: LOSARTAN POTASSIUM 50 MG TABLET PO SCH (08:27)
[2021-02-12] MEDS: CRANBERRY FRUIT EXTRACT 200 MG CAP PO SCH ×2 (08:27→19:53)
[2021-02-12] MEDS: VITAMIN D 1000 UNIT TAB PO SCH (08:27)
[2021-02-12] MEDS: AMLODIPINE 5 MG TAB PO SCH ×2 (08:28→19:53)
[2021-02-12] MEDS: FUROSEMIDE 20 MG TABLET PO SCH (08:28)
[2021-02-12] MEDS: FLUOXETINE 20 MG CAP PO SCH (08:28)
[2021-02-12] MEDS: ENSURE HIGH PROTEIN 237 ML CAN PO SCH ×2 (08:29→19:54)
[2021-02-12] MEDS: APIXABAN 5 MG TABLET PO SCH ×2 (08:29→19:53)
[2021-02-12] MEDS: ROSUVASTATIN 10 MG TAB PO SCH (19:52)
[2021-02-12] MEDS: DOCUSATE NA 100 MG CAP PO PRN (19:53)
[2021-02-13] MEDS: LIDOCAINE 4% PATCH TOP SCH (07:15)
[2021-02-13] MEDS: FUROSEMIDE 20 MG TABLET PO SCH (08:28)
[2021-02-13] MEDS: CRANBERRY FRUIT EXTRACT 200 MG CAP PO SCH ×2 (08:28→19:58)
[2021-02-13] MEDS: AMLODIPINE 5 MG TAB PO SCH ×2 (08:28→19:58)
[2021-02-13] MEDS: FLUOXETINE 20 MG CAP PO SCH (08:29)
[2021-02-13] MEDS: LOSARTAN POTASSIUM 50 MG TABLET PO SCH (08:29)
[2021-02-13] MEDS: VITAMIN D 1000 UNIT TAB PO SCH (08:29)
[2021-02-13] MEDS: ENSURE HIGH PROTEIN 237 ML CAN PO SCH ×2 (08:29→19:58)
[2021-02-13] MEDS: APIXABAN 5 MG TABLET PO SCH ×2 (08:29→19:58)
[2021-02-13] MEDS: ACETAMINOPHEN 500 MG TAB PO PRN ×2 (12:28→22:56)
[2021-02-13] MEDS: ROSUVASTATIN 10 MG TAB PO SCH (19:58)
[2021-02-13] MEDS: DOCUSATE NA 100 MG CAP PO PRN (19:58)
[2021-02-14] MEDS: ACETAMINOPHEN 500 MG TAB PO PRN ×2 (08:38→20:27)
[2021-02-14] MEDS: LIDOCAINE 4% PATCH TOP SCH (08:38)
[2021-02-14] MEDS: FLUOXETINE 20 MG CAP PO SCH (08:39)
[2021-02-14] MEDS: CRANBERRY FRUIT EXTRACT 200 MG CAP PO SCH ×2 (08:39→20:19)
[2021-02-14] MEDS: VITAMIN D 1000 UNIT TAB PO SCH (08:39)
[2021-02-14] MEDS: FUROSEMIDE 20 MG TABLET PO SCH (08:40)
[2021-02-14] MEDS: APIXABAN 5 MG TABLET PO SCH ×2 (08:40→20:16)
[2021-02-14] MEDS: AMLODIPINE 5 MG TAB PO SCH ×2 (10:15→20:00)
[2021-02-14] MEDS: ENSURE HIGH PROTEIN 237 ML CAN PO SCH ×2 (10:16→20:00)
[2021-02-14] MEDS: LOSARTAN POTASSIUM 50 MG TABLET PO SCH (12:26)
--- NOTE | 2021-02-14 16:50 | R.PN ---
PROGRESS NOTES ENCOUNTER DATE AND TIME: 02/14/2021 16:47 (CDT) NAME ROSY SANCHES DATE OF : 1940 DATE OF ADMISSION: 02/04/2021 20:55 (CDT) ACUTE RIGHT FRONTAL STROKECHIEF COMPLAINT: Right brain stroke with left sided weakness SUBJECTIVE: Pt denied any Shortness of Breath. Pt denied any depression. CBC with differential is normal. Prealbumin increased to 19.5, COVID-19 is negative. Ambulated 130' with minimum assistance using a rolling walker. VITAL SIGNS Temperature: 97.6 F SBP/DBP: 148/57 Pulse: 83 Resp: 16 MEDICATION ALLERGIES: PENICILLIN ENVIRONMENTAL ALLERGIES: - Substance Allergies None Known - Other Allergies None Known NURSING: - Shower allowing shower - Bladder care per protocol - Skin care per protocol PRECAUTIONS: - Weight Bearing Precaution WBAT right LE ACTIVITIES OOB only with supervision THERAPIES: - Occupational Therapy Cognitive Retraining. Visual Perceptual Training. - Dietary and Nutrition Adequate Nutrition. Nutritional Education. Nutritional Supplements. - Speech Therapy Cognitive Training. Expressive Language Skills. Memory Strategies. Receptive Language Skills. Speech Intelligibility Training. PHYSICAL EXAM - Gen Alert and awake Lying in bed No apparent distress Oriented to: person, time, and place - Skin No breakdown Normacephalic - Eyes No abnormalities - ENMT No abnormalities - Neck No abnormalities - CVS RRR - Chest Clear - Abd + bowel sounds - GI Soft Deferred - No abnormalities - Ext No significant edema - MSK 4+/5 weakness in right upper and lower extremities. - Neuro 4/5 strength right upper and lower extremities. - Psych Mild anxiety. ASSESSMENT: Pt. is a 80 yo Right-handed female.On 01/25/2021 Pt. presented to [facility] with sudden onset of righ t-side weakness.On 01/25/2021 she was admitted to [facility] with diagnosis ACUTE RIGHT FRONTAL STROKE .Her impairment category is Stroke 01 - Right Body (Left Brain) (01.2).Pre-morbidly, Pt. was indepen dent/mod-I in Locomotion, Balance, Safety Awareness, and Self-Care; and she had good Endurance, Commu nication, and Social Cognition.Currently, she has deficits of Locomotion, Balance, Safety Awareness, Transfers Control, Sphincter Control, Communication, Self-Care, and Endurance.Pt. is now referred to [facility] for acute in-patient rehabilitation in order to maximize patient's functional independence in activities of daily living, strength, ROM, and mobility.- Rehab Goal Patient has realistic goal of being discharged at assistance level 7-Ind to reside at Home with Fami ly/Relatives. CBC with differential and BMP are essentially normal. Prealbumin is low at 13.1.MDM/PLAN: - Physical Therapy Gait dysfunction - to improve, our physical therapists will perform initial evaluation of pt's statu s upon admission and devise an individualized program for Gait Training, and Wheel Chair mobility Inability to transfer - to improve, our physical therapists will perform initial evaluation of pt's status upon admission and devise an individualized program for Bed mobility Need for home safety evaluation - to improve, our physical therapists will perform initial evaluatio n of pt's status upon admission and devise an individualized program for Home Evaluation Need in caregiver upon discharge - to improve, our physical therapists will perform initial evaluati on of pt's status upon admission and devise an individualized program for Caregiver Training Edema - to improve, our physical therapists will perform initial evaluation of pt's status upon admi ssion and devise an individualized program for Elevation Training, and Lymphedema Therapy New precaution - to improve, our physical therapists will perform initial evaluation of pt's status upon admission and devise an individualized program for Patient precaution education Poor balance - to improve, our physical therapists will perform initial evaluation of pt's status up on admission and devise an individualized program for Balance Training Poor endurance - to improve, our physical therapists will perform initial evaluation of pt's status upon admission and devise an individualized program for Endurance Training Achieving independence - to improve, our physical therapists will perform initial evaluation of pt's status upon admission and devise an individualized program for Community Reintegration Activities - Occupational Therapy ADL deficits - to improve, our occupation therapists will perform initial evaluation of pt's status upon admission and devise an individualized program for Bathing, Bed mobility, Community Reintegratio n, Cooking, Dressing, Eating, Fine Motor Skills, Grooming, Homemaking, Kitchen Mobility, Laundry, Pat ient Education, Safety Awareness, Splinting - Positioning, Transfers(Toilet, Tub, Shower), and Wheel Chair Management Need for patient care associate - to improve, our occupation therapists will perform initial evaluation of pt's status upon admission and devise an individualized program for Caregiver Training - Other See attached MAR (Medication Administration Record) - Diet Type Continue Regular - Diet - Liquid Texture Continue Regular - Tube Feed Continue N/A - Bladder care per protocol - Weight Bearing Precaution WBAT right LE - Skin care per protocol - Diet - Solid Texture Continue Regular - Shower allowing shower for Dementia, TBI, Stroke, or others FUNCTIONAL STATUS: UPDATED AT WEEKLY TEAM CONFERENCE - Bladder Same accident frequency: 7-Ind - No accidents in the past 7 days - Bowel Same accident frequency: 7-Ind - No accidents in the past 7 days - Walking Same score based on distance walked: 0(N/A) Same score based on distance walked: 2(50-149ft) - Wheelchair Same score based on distance traveled: 0(N/A) FUNCTIONAL STATUS: - Self-Care A. Eating Tanvi B. Grooming Tanvi C. Bathing Christiano D. Dressing - Upper Christiano E. Dressing - Lower Christiano F. Toileting Christiano - Sphincter Control G. Bladder control Tanvi H. Bowel control Tanvi - Transfers Control I. Bed/Chair/Wheelchair sup J. Toilet sup K. Tub/Shower Christiano - Locomotion L. Walk/Wheelchair (B) Christiano M. Stairs ADNO - Communication N. Comprehension (B) sup O. Expression (B) sup - Social Cognition P. Social Interaction sup Q. Problem Solving Christiaon R. Memory Christiano - Endurance Fair - Balance Fair - Safety Awareness Fair QI SCORES: - Self-Care A. Eating 03-Partial/moderate assistance B. Oral hygiene 03-Partial/moderate assistance C. Toileting hygiene 03-Partial/moderate assistance E. Shower/bathe self F. Upper body dressing 03-Partial/moderate assistance G. Lower body dressing 03-Partial/moderate assistance H. Putting on/taking off footwear 88-Not attempted due to medical condition or safety concerns - Mobility A. Roll left and right 03-Partial/moderate assistance B. Sit to lying 03-Partial/moderate assistance C. Lying to sitting on side of bed 03-Partial/moderate assistance D. Sit to stand 03-Partial/moderate assistance E. Chair/[id number] transfer 03-Partial/moderate assistance F. Toilet transfer 03-Partial/moderate assistance G. Car transfer 88-Not attempted due to medical condition or safety concerns I. Walk 10 feet 03-Partial/moderate assistance J. Walk 50 feet with two turns 88-Not attempted due to medical condition or safety concerns K. Walk 150 feet 88-Not attempted due to medical condition or safety concerns L. Walking 10 feet on uneven surfaces 88-Not attempted due to medical condition or safety concerns M. 1 step (curb) 88-Not attempted due to medical condition or safety concerns N. 4 steps 88-Not attempted due to medical condition or safety concerns O. 12 steps 88-Not attempted due to medical condition or safety concerns P. Picking up object 88-Not attempted due to medical condition or safety concerns R. Wheel 50 feet with two turns 88-Not attempted due to medical condition or safety concerns S. Wheel 150 feet 88-Not attempted due to medical condition or safety concerns - Bladder and Bowel Bladder continence Bowel continence - Endurance Good - Balance Fair - Safety Awareness Fair CURRENT [facility]. DEFICITS: Self-Care, Mobility, Balance, and Safety Awareness SIGNATURE PANEL: (CDT)
[2021-02-14] MEDS: ROSUVASTATIN 10 MG TAB PO SCH (20:16)
[2021-02-15] MEDS: ACETAMINOPHEN 500 MG TAB PO PRN ×3 (03:14→19:53)
[2021-02-15] MEDS: LIDOCAINE 4% PATCH TOP SCH (06:57)
[2021-02-15] MEDS: METHYL SALICYLATE/MENTHOL 3 OZ TUBE TOP PRN (07:30)
[2021-02-15] MEDS: FLUOXETINE 20 MG CAP PO SCH (08:18)
[2021-02-15] MEDS: CRANBERRY FRUIT EXTRACT 200 MG CAP PO SCH ×2 (08:18→19:52)
[2021-02-15] MEDS: VITAMIN D 1000 UNIT TAB PO SCH (08:19)
[2021-02-15] MEDS: APIXABAN 5 MG TABLET PO SCH ×2 (08:19→19:53)
[2021-02-15] MEDS: FUROSEMIDE 20 MG TABLET PO SCH (08:19)
[2021-02-15] MEDS: LOSARTAN POTASSIUM 50 MG TABLET PO SCH (10:30)
[2021-02-15] MEDS: AMLODIPINE 5 MG TAB PO SCH ×2 (12:03→19:52)
[2021-02-15] MEDS: ENSURE HIGH PROTEIN 237 ML CAN PO SCH ×2 (12:10→19:54)
--- NOTE | 2021-02-15 17:37 | R.PN ---
PROGRESS NOTES ENCOUNTER DATE AND TIME: 02/15/2021 17:33 (CDT) NAME ROSY SANCHES DATE OF : 1940 DATE OF ADMISSION: 02/04/2021 20:55 (CDT) ACUTE RIGHT FRONTAL STROKECHIEF COMPLAINT: Right brain stroke with left sided weakness SUBJECTIVE: Pt denied any Shortness of Breath. Pt denied any depression. CBC with differential is normal. Prealbumin increased to 19.5, COVID-19 is negative. Ambulated 285' with contact guard assistance using a rolling walker. VITAL SIGNS Temperature: 97.2 F SBP/DBP: 155/56 Pulse: 74 Resp: 15 MEDICATION ALLERGIES: PENICILLIN ENVIRONMENTAL ALLERGIES: - Substance Allergies None Known - Other Allergies None Known NURSING: - Shower allowing shower - Bladder care per protocol - Skin care per protocol PRECAUTIONS: - Weight Bearing Precaution WBAT right LE ACTIVITIES OOB only with supervision THERAPIES: - Occupational Therapy Cognitive Retraining. Visual Perceptual Training. - Dietary and Nutrition Adequate Nutrition. Nutritional Education. Nutritional Supplements. - Speech Therapy Cognitive Training. Expressive Language Skills. Memory Strategies. Receptive Language Skills. Speech Intelligibility Training. PHYSICAL EXAM - Gen Alert and awake Lying in bed No apparent distress Oriented to: person, time, and place - Skin No breakdown Normacephalic - Eyes No abnormalities - ENMT No abnormalities - Neck No abnormalities - CVS RRR - Chest Clear - Abd + bowel sounds - GI Soft Deferred - No abnormalities - Ext No significant edema - MSK 4+/5 weakness in right upper and lower extremities. - Neuro 4/5 strength right upper and lower extremities. - Psych Mild anxiety. ASSESSMENT: Pt. is a 80 yo Right-handed female.On 01/25/2021 Pt. presented to [facility] with sudden onset of righ t-side weakness.On 01/25/2021 she was admitted to [facility] with diagnosis ACUTE RIGHT FRONTAL STROKE .Her impairment category is Stroke 01 - Right Body (Left Brain) (01.2).Pre-morbidly, Pt. was indepen dent/mod-I in Locomotion, Balance, Safety Awareness, and Self-Care; and she had good Endurance, Commu nication, and Social Cognition.Currently, she has deficits of Locomotion, Balance, Safety Awareness, Transfers Control, Sphincter Control, Communication, Self-Care, and Endurance.Pt. is now referred to [facility] for acute in-patient rehabilitation in order to maximize patient's functional independence in activities of daily living, strength, ROM, and mobility.- Rehab Goal Patient has realistic goal of being discharged at assistance level 7-Ind to reside at Home with Fami ly/Relatives. CBC with differential and BMP are essentially normal. Prealbumin is low at 13.1.MDM/PLAN: - Physical Therapy Gait dysfunction - to improve, our physical therapists will perform initial evaluation of pt's statu s upon admission and devise an individualized program for Gait Training, and Wheel Chair mobility Inability to transfer - to improve, our physical therapists will perform initial evaluation of pt's status upon admission and devise an individualized program for Bed mobility Need for home safety evaluation - to improve, our physical therapists will perform initial evaluatio n of pt's status upon admission and devise an individualized program for Home Evaluation Need in caregiver upon discharge - to improve, our physical therapists will perform initial evaluati on of pt's status upon admission and devise an individualized program for Caregiver Training Edema - to improve, our physical therapists will perform initial evaluation of pt's status upon admi ssion and devise an individualized program for Elevation Training, and Lymphedema Therapy New precaution - to improve, our physical therapists will perform initial evaluation of pt's status upon admission and devise an individualized program for Patient precaution education Poor balance - to improve, our physical therapists will perform initial evaluation of pt's status up on admission and devise an individualized program for Balance Training Poor endurance - to improve, our physical therapists will perform initial evaluation of pt's status upon admission and devise an individualized program for Endurance Training Achieving independence - to improve, our physical therapists will perform initial evaluation of pt's status upon admission and devise an individualized program for Community Reintegration Activities - Occupational Therapy ADL deficits - to improve, our occupation therapists will perform initial evaluation of pt's status upon admission and devise an individualized program for Bathing, Bed mobility, Community Reintegratio n, Cooking, Dressing, Eating, Fine Motor Skills, Grooming, Homemaking, Kitchen Mobility, Laundry, Pat ient Education, Safety Awareness, Splinting - Positioning, Transfers(Toilet, Tub, Shower), and Wheel Chair Management Need for patient centered care specialist - to improve, our occupation therapists will perform initial evaluation of pt's status upon admission and devise an individualized program for Caregiver Training - Other See attached MAR (Medication Administration Record) - Diet Type Continue Regular - Diet - Liquid Texture Continue Regular - Tube Feed Continue N/A - Bladder care per protocol - Weight Bearing Precaution WBAT right LE - Skin care per protocol - Diet - Solid Texture Continue Regular - Shower allowing shower for Dementia, TBI, Stroke, or others FUNCTIONAL STATUS: UPDATED AT WEEKLY TEAM CONFERENCE - Bladder Same accident frequency: 7-Ind - No accidents in the past 7 days - Bowel Same accident frequency: 7-Ind - No accidents in the past 7 days - Walking Same score based on distance walked: 0(N/A) Same score based on distance walked: 2(50-149ft) - Wheelchair Same score based on distance traveled: 0(N/A) FUNCTIONAL STATUS: - Self-Care A. Eating Tanvi B. Grooming Tanvi C. Bathing Christiano D. Dressing - Upper Christiano E. Dressing - Lower Christiano F. Toileting Christiano - Sphincter Control G. Bladder control Tanvi H. Bowel control Tanvi - Transfers Control I. Bed/Chair/Wheelchair sup J. Toilet sup K. Tub/Shower Christiano - Locomotion L. Walk/Wheelchair (B) Christiano M. Stairs ADNO - Communication N. Comprehension (B) sup O. Expression (B) sup - Social Cognition P. Social Interaction sup Q. Problem Solving Christiano R. Memory Christiano - Endurance Fair - Balance Fair - Safety Awareness Fair QI SCORES: - Self-Care A. Eating 03-Partial/moderate assistance B. Oral hygiene 03-Partial/moderate assistance C. Toileting hygiene 03-Partial/moderate assistance E. Shower/bathe self F. Upper body dressing 03-Partial/moderate assistance G. Lower body dressing 03-Partial/moderate assistance H. Putting on/taking off footwear 88-Not attempted due to medical condition or safety concerns - Mobility A. Roll left and right 03-Partial/moderate assistance B. Sit to lying 03-Partial/moderate assistance C. Lying to sitting on side of bed 03-Partial/moderate assistance D. Sit to stand 03-Partial/moderate assistance E. Chair/dov-bv-[id number] transfer 03-Partial/moderate assistance F. Toilet transfer 03-Partial/moderate assistance G. Car transfer 88-Not attempted due to medical condition or safety concerns I. Walk 10 feet 03-Partial/moderate assistance J. Walk 50 feet with two turns 88-Not attempted due to medical condition or safety concerns K. Walk 150 feet 88-Not attempted due to medical condition or safety concerns L. Walking 10 feet on uneven surfaces 88-Not attempted due to medical condition or safety concerns M. 1 step (curb) 88-Not attempted due to medical condition or safety concerns N. 4 steps 88-Not attempted due to medical condition or safety concerns O. 12 steps 88-Not attempted due to medical condition or safety concerns P. Picking up object 88-Not attempted due to medical condition or safety concerns R. Wheel 50 feet with two turns 88-Not attempted due to medical condition or safety concerns S. Wheel 150 feet 88-Not attempted due to medical condition or safety concerns - Bladder and Bowel Bladder continence Bowel continence - Endurance Good - Balance Fair - Safety Awareness Fair CURRENT [facility]. DEFICITS: Self-Care, Mobility, Balance, and Safety Awareness SIGNATURE PANEL: (CDT)
[2021-02-15] MEDS: ROSUVASTATIN 10 MG TAB PO SCH (19:52)
[2021-02-16] MEDS: CRANBERRY FRUIT EXTRACT 200 MG CAP PO SCH ×2 (07:51→19:25)
[2021-02-16] MEDS: FLUOXETINE 20 MG CAP PO SCH (07:52)
[2021-02-16] MEDS: APIXABAN 5 MG TABLET PO SCH ×2 (07:52→19:25)
[2021-02-16] MEDS: VITAMIN D 1000 UNIT TAB PO SCH (07:52)
[2021-02-16] MEDS: FUROSEMIDE 20 MG TABLET PO SCH (07:53)
[2021-02-16] MEDS: ENSURE HIGH PROTEIN 237 ML CAN PO SCH ×2 (07:54→19:27)
[2021-02-16] MEDS: AMLODIPINE 5 MG TAB PO SCH ×2 (08:00→19:26)
[2021-02-16] MEDS: LOSARTAN POTASSIUM 50 MG TABLET PO SCH (08:00)
[2021-02-16] MEDS: LIDOCAINE 4% PATCH TOP SCH (09:02)
--- NOTE | 2021-02-16 17:17 | R.PN ---
PROGRESS NOTES ENCOUNTER DATE AND TIME: 02/16/2021 17:15 (CDT) NAME ROSY SANCHES DATE OF : 1940 DATE OF ADMISSION: 02/04/2021 20:55 (CDT) ACUTE RIGHT FRONTAL STROKECHIEF COMPLAINT: Right brain stroke with left sided weakness SUBJECTIVE: Pt denied any Shortness of Breath. Pt denied any depression. CBC with differential is normal. Prealbumin increased to 19.5, COVID-19 is negative. Ambulated 180' with contact guard assistance using a left platform rolling walker. VITAL SIGNS Temperature: 97.9 F SBP/DBP: 116/60 Pulse: 80 Resp: 16 MEDICATION ALLERGIES: PENICILLIN ENVIRONMENTAL ALLERGIES: - Substance Allergies None Known - Other Allergies None Known NURSING: - Shower allowing shower - Bladder care per protocol - Skin care per protocol PRECAUTIONS: - Weight Bearing Precaution WBAT right LE ACTIVITIES OOB only with supervision THERAPIES: - Occupational Therapy Cognitive Retraining. Visual Perceptual Training. - Dietary and Nutrition Adequate Nutrition. Nutritional Education. Nutritional Supplements. - Speech Therapy Cognitive Training. Expressive Language Skills. Memory Strategies. Receptive Language Skills. Speech Intelligibility Training. PHYSICAL EXAM - Gen Alert and awake Lying in bed No apparent distress Oriented to: person, time, and place - Skin No breakdown Normacephalic - Eyes No abnormalities - ENMT No abnormalities - Neck No abnormalities - CVS RRR - Chest Clear - Abd + bowel sounds - GI Soft Deferred - No abnormalities - Ext No significant edema - MSK 4+/5 weakness in right upper and lower extremities. - Neuro 4/5 strength right upper and lower extremities. - Psych Mild anxiety. ASSESSMENT: Pt. is a 80 yo Right-handed female.On 01/25/2021 Pt. presented to [facility] with sudden onset of righ t-side weakness.On 01/25/2021 she was admitted to [facility] with diagnosis ACUTE RIGHT FRONTAL STROKE .Her impairment category is Stroke 01 - Right Body (Left Brain) (01.2).Pre-morbidly, Pt. was indepen dent/mod-I in Locomotion, Balance, Safety Awareness, and Self-Care; and she had good Endurance, Commu nication, and Social Cognition.Currently, she has deficits of Locomotion, Balance, Safety Awareness, Transfers Control, Sphincter Control, Communication, Self-Care, and Endurance.Pt. is now referred to [facility] for acute in-patient rehabilitation in order to maximize patient's functional independence in activities of daily living, strength, ROM, and mobility.- Rehab Goal Patient has realistic goal of being discharged at assistance level 7-Ind to reside at Home with Fami ly/Relatives. - Physical Therapy Gait dysfunction - to improve, our physical therapists will perform initial evaluation of pt's statu s upon admission and devise an individualized program for Gait Training, and Wheel Chair mobility Inability to transfer - to improve, our physical therapists will perform initial evaluation of pt's status upon admission and devise an individualized program for Bed mobility Need for home safety evaluation - to improve, our physical therapists will perform initial evaluatio n of pt's status upon admission and devise an individualized program for Home Evaluation Need in caregiver upon discharge - to improve, our physical therapists will perform initial evaluati on of pt's status upon admission and devise an individualized program for Caregiver Training Edema - to improve, our physical therapists will perform initial evaluation of pt's status upon admi ssion and devise an individualized program for Elevation Training, and Lymphedema Therapy New precaution - to improve, our physical therapists will perform initial evaluation of pt's status upon admission and devise an individualized program for Patient precaution education Poor balance - to improve, our physical therapists will perform initial evaluation of pt's status up on admission and devise an individualized program for Balance Training Poor endurance - to improve, our physical therapists will perform initial evaluation of pt's status upon admission and devise an individualized program for Endurance Training Achieving independence - to improve, our physical therapists will perform initial evaluation of pt's status upon admission and devise an individualized program for Community Reintegration Activities - Occupational Therapy ADL deficits - to improve, our occupation therapists will perform initial evaluation of pt's status upon admission and devise an individualized program for Bathing, Bed mobility, Community Reintegratio n, Cooking, Dressing, Eating, Fine Motor Skills, Grooming, Homemaking, Kitchen Mobility, Laundry, Pat ient Education, Safety Awareness, Splinting - Positioning, Transfers(Toilet, Tub, Shower), and Wheel Chair Management Need for home health care coordinator - to improve, our occupation therapists will perform initial evaluation of pt's status upon admission and devise an individualized program for Caregiver Training - Other See attached MAR (Medication Administration Record) - Diet Type Continue Regular - Diet - Liquid Texture Continue Regular - Tube Feed Continue N/A - Bladder care per protocol - Weight Bearing Precaution WBAT right LE - Skin care per protocol - Diet - Solid Texture Continue Regular - Shower allowing shower for Dementia, TBI, Stroke, or others FUNCTIONAL STATUS: UPDATED AT WEEKLY TEAM CONFERENCE - Bladder Same accident frequency: 7-Ind - No accidents in the past 7 days - Bowel Same accident frequency: 7-Ind - No accidents in the past 7 days - Walking Same score based on distance walked: 0(N/A) Same score based on distance walked: 2(50-149ft) - Wheelchair Same score based on distance traveled: 0(N/A) FUNCTIONAL STATUS: - Self-Care A. Eating Tanvi B. Grooming Tanvi C. Bathing Christiano D. Dressing - Upper Christiano E. Dressing - Lower Christiano F. Toileting Christiano - Sphincter Control G. Bladder control Tanvi H. Bowel control Tanvi - Transfers Control I. Bed/Chair/Wheelchair sup J. Toilet sup K. Tub/Shower Christiano - Locomotion L. Walk/Wheelchair (B) Christiano M. Stairs ADNO - Communication N. Comprehension (B) sup O. Expression (B) sup - Social Cognition P. Social Interaction sup Q. Problem Solving Christiano R. Memory Christiano - Endurance Fair - Balance Fair - Safety Awareness Fair QI SCORES: - Self-Care A. Eating 03-Partial/moderate assistance B. Oral hygiene 03-Partial/moderate assistance C. Toileting hygiene 03-Partial/moderate assistance E. Shower/bathe self F. Upper body dressing 03-Partial/moderate assistance G. Lower body dressing 03-Partial/moderate assistance H. Putting on/taking off footwear 88-Not attempted due to medical condition or safety concerns - Mobility A. Roll left and right 03-Partial/moderate assistance B. Sit to lying 03-Partial/moderate assistance C. Lying to sitting on side of bed 03-Partial/moderate assistance D. Sit to stand 03-Partial/moderate assistance E. Chair/[id number] transfer 03-Partial/moderate assistance F. Toilet transfer 03-Partial/moderate assistance G. Car transfer 88-Not attempted due to medical condition or safety concerns I. Walk 10 feet 03-Partial/moderate assistance J. Walk 50 feet with two turns 88-Not attempted due to medical condition or safety concerns K. Walk 150 feet 88-Not attempted due to medical condition or safety concerns L. Walking 10 feet on uneven surfaces 88-Not attempted due to medical condition or safety concerns M. 1 step (curb) 88-Not attempted due to medical condition or safety concerns N. 4 steps 88-Not attempted due to medical condition or safety concerns O. 12 steps 88-Not attempted due to medical condition or safety concerns P. Picking up object 88-Not attempted due to medical condition or safety concerns R. Wheel 50 feet with two turns 88-Not attempted due to medical condition or safety concerns S. Wheel 150 feet 88-Not attempted due to medical condition or safety concerns - Bladder and Bowel Bladder continence Bowel continence - Endurance Good - Balance Fair - Safety Awareness Fair [facility]RENT [facility]. DEFICITS: Self-Care, Mobility, Balance, and Safety Awareness SIGNATURE PANEL: (CDT)
[2021-02-16] MEDS: ROSUVASTATIN 10 MG TAB PO SCH (19:25)
[2021-02-16] MEDS: ACETAMINOPHEN 500 MG TAB PO PRN (19:26)
[2021-02-16 21:50] LABS: Absolute Lymphocytes (CBC) 1.5 K/uL (0.7-4.9); Basophils % 1.1 % (0-1.3); Hematocrit 33.9 % (36.0-45.0); Lymphocytes % 20.1 % (15.3-44.8); MPV 8.7 fL (7.6-11.3); RBC Red Blood Cell Count 4.15 M/uL (3.86-4.86)
[2021-02-16 22:01] LABS: Albumin 2.9 g/dL (3.4-5.0); BUN Blood Urea Nitrogen 21 mg/dL (7-18); Bicarbonate 29 mmol/L (21-32); Glucose Level 107 mg/dL (74-106); Magnesium 2.3 mg/dL (1.8-2.4); Prealbumin 17.9 mg/dL (20-40); Sodium Level 141 mmol/L (136-145)
[2021-02-17] MEDS: LIDOCAINE 4% PATCH TOP SCH (06:36)
[2021-02-17] MEDS: CRANBERRY FRUIT EXTRACT 200 MG CAP PO SCH ×2 (07:42→20:20)
[2021-02-17] MEDS: AMLODIPINE 5 MG TAB PO SCH ×2 (07:42→20:22)
[2021-02-17] MEDS: APIXABAN 5 MG TABLET PO SCH ×2 (07:43→20:24)
[2021-02-17] MEDS: FLUOXETINE 20 MG CAP PO SCH (07:43)
[2021-02-17] MEDS: LOSARTAN POTASSIUM 50 MG TABLET PO SCH (07:43)
[2021-02-17] MEDS: ENSURE HIGH PROTEIN 237 ML CAN PO SCH ×2 (07:44→20:00)
[2021-02-17] MEDS: ACETAMINOPHEN 500 MG TAB PO PRN ×3 (07:44→20:20)
[2021-02-17] MEDS: FUROSEMIDE 20 MG TABLET PO SCH (07:45)
[2021-02-17] MEDS: VITAMIN D 1000 UNIT TAB PO SCH (07:45)
--- NOTE | 2021-02-17 09:54 | P.RH.PN ---
Estimated Length of Stay: 19 Expected Discharge Date: 02/22/21 Discharge Disposition Plan: Home Family Support: Yes [facility]sp Goal: Mobility, Transfers, Self Care Vital Signs: Last Vital Signs Temp 98.6 F 02/17/21 07:21 Pulse 83 02/17/21 07:45 Resp 16 02/17/21 07:21 BP 120/54 L 02/17/21 07:45 Pulse Ox 99 02/17/21 07:21 Laboratory: Laboratory Last Values WBC 7.30 K/uL (4.3-10.9) D 02/16/21 21:19 RBC 4.15 M/uL (3.86-4.86) 02/16/21 21:19 Hgb 11.4 g/dL (12.0-15.0) L 02/16/21 21:19 Hct 33.9 % (36.0-45.0) L 02/16/21 21:19 MCV 81.7 fL (80-100) 02/16/21 21:19 MCH 27.4 pg (27.0-35.0) 02/16/21 21:19 MCHC 33.6 g/dL (32.0-36.0) 02/16/21 21:19 RDW 14.3 % (12.1-15.2) 02/16/21 21:19 Plt Count 185 K/uL (152-406) 02/16/21 21:19 MPV 8.7 fL (7.6-11.3) 02/16/21 21:19 Neutrophils % 64.4 % (41.7-73.7) 02/16/21 21:19 Lymphocytes % 20.1 % (15.3-44.8) 02/16/21 21:19 Monocytes % 11.2 % (3.3-12.3) 02/16/21 21:19 Eosinophils % 3.2 % (0-4.4) 02/16/21 21:19 Basophils % 1.1 % (0-1.3) 02/16/21 21:19 Absolute Neutrophils 4.7 K/uL (1.8-8.0) 02/16/21 21:19 Absolute Lymphocytes 1.5 K/uL (0.7-4.9) 02/16/21 21:19 Absolute Monocytes 0.8 K/uL (0.1-1.3) 02/16/21 21:19 Absolute Eosinophils 0.2 K/uL (0-0.5) 02/16/21 21:19 Absolute Basophils 0.1 K/uL (0-0.5) 02/16/21 21:19 Sodium 141 mmol/L (136-145) 02/16/21 21:19 Potassium 4.0 mmol/L (3.5-5.1) 02/16/21 21:19 Chloride 107 mmol/L (98-107) 02/16/21 21:19 Carbon Dioxide 29 mmol/L (21-32) 02/16/21 21:19 BUN 21 mg/dL (7-18) H 02/16/21 21:19 Creatinine 0.59 mg/dL (0.55-1.3) 02/16/21 21:19 Estimated GFR > 90 mL/min (=/>90) 02/16/21 21:19 Glucose 107 mg/dL (74-106) H 02/16/21 21:19 Calcium 8.5 mg/dL (8.5-10.1) 02/16/21 21:19 Magnesium 2.3 mg/dL (1.8-2.4) 02/16/21 21:19 Albumin 2.9 g/dL (3.4-5.0) L 02/16/21 21:19 Prealbumin 17.9 mg/dL (20-40) L 02/16/21 21:19 Urine Color Yellow (Yellow) 02/10/21 17:15 Urine Appearance Clear (Clear) 02/10/21 17:15 Urine pH 7.0 (5.0-7.0) 02/10/21 17:15 Ur Specific [place] <=1.005 (1.005-1.030) 02/10/21 17:15 Glucose (UA)(Auto) Negative (Negative) 02/10/21 17:15 Urine Ketones Negative (Negative) 02/10/21 17:15 Urine Blood Negative (Negative) 02/10/21 17:15 Urine Nitrite Negative (Negative) 02/10/21 17:15 Urine Bilirubin Negative (Negative) 02/10/21 17:15 Urine Urobilinogen 0.2 mg/dL (0.2-1.0) 02/10/21 17:15 Ur Leukocyte Esterase Negative (Negative) 02/10/21 17:15 Urine RBC None seen /HPF (NONE SEEN) 02/10/21 17:15 Urine WBC <5 /HPF (<5) 02/10/21 17:15 Ur Squamous Epith Cells <5 /HPF (NONE SEEN) 02/10/21 17:15 Urine Bacteria <20 /HPF (<20) 02/10/21 17:15 Urine Culture Reflexed Not needed 02/10/21 17:15 Urine Total Protein Negative (Negative) 02/10/21 17:15 SARS-CoV-2 RNA (RT-PCR) Negative (NEGATIVE) 02/11/21 08:57 Weight: 179 lb 8 oz Wound Present: No Closed Surgical Incision Present: No Negative Pressure Wound Therapy Present: No Physician Update: Making fair overall progress with physical therpy. Working on short term memory and need a lot of reminders. She is at minimum assistance for transfers. 130' with contact guard assistance using a left forearm platform walker. Summary: Patient's care plan and group home goals have been reviewed and revised as necessary. Please see the Rehabilitation Signature page for all necessary signatures.
[2021-02-17] MEDS: ROSUVASTATIN 10 MG TAB PO SCH (20:20)
[2021-02-18] MEDS: LIDOCAINE 4% PATCH TOP SCH (08:20)
[2021-02-18] MEDS: VITAMIN D 1000 UNIT TAB PO SCH (08:21)
[2021-02-18] MEDS: FUROSEMIDE 20 MG TABLET PO SCH (08:21)
[2021-02-18] MEDS: AMLODIPINE 5 MG TAB PO SCH ×2 (08:21→20:17)
[2021-02-18] MEDS: APIXABAN 5 MG TABLET PO SCH ×2 (08:21→20:18)
[2021-02-18] MEDS: CRANBERRY FRUIT EXTRACT 200 MG CAP PO SCH ×2 (08:22→20:16)
[2021-02-18] MEDS: FLUOXETINE 20 MG CAP PO SCH (08:22)
[2021-02-18] MEDS: ENSURE HIGH PROTEIN 237 ML CAN PO SCH ×2 (08:23→20:18)
[2021-02-18] MEDS: LOSARTAN POTASSIUM 50 MG TABLET PO SCH (11:06)
[2021-02-18 17:12] LABS: Urine Appearance CLEAR (Clear); Urine Bilirubin NEGATIVE (Negative); Urine Blood TRACE (Negative); Urine Color YELLOW (Yellow); Urine Glucose NEGATIVE (Negative); Urine Protein NEGATIVE (Negative); Urine Specific Gravity <=1.005 (1.005-1.030); Urine Urobilinogen 0.2 mg/dL (0.2-1.0); Urine pH 7.5 (5.0-7.0)
[2021-02-18 17:17] LABS: Urine Microscopic Reflex ORDER UMIC
[2021-02-18 18:02] LABS: Urine Bacteria <20 /HPF (<20); Urine RBC <5 /HPF (NONE SEEN)
[2021-02-18] MEDS: ROSUVASTATIN 10 MG TAB PO SCH (20:16)
[2021-02-19 05:15] VITALS: BMI 31.5
[2021-02-19] MEDS: LIDOCAINE 4% PATCH TOP SCH (07:35)
[2021-02-19] MEDS: CRANBERRY FRUIT EXTRACT 200 MG CAP PO SCH ×2 (08:52→19:37)
[2021-02-19] MEDS: VITAMIN D 1000 UNIT TAB PO SCH (08:52)
[2021-02-19] MEDS: AMLODIPINE 5 MG TAB PO SCH ×2 (08:53→19:37)
[2021-02-19] MEDS: FLUOXETINE 20 MG CAP PO SCH (08:53)
[2021-02-19] MEDS: FUROSEMIDE 20 MG TABLET PO SCH (08:53)
[2021-02-19] MEDS: LOSARTAN POTASSIUM 50 MG TABLET PO SCH (08:53)
[2021-02-19] MEDS: APIXABAN 5 MG TABLET PO SCH ×2 (08:54→19:37)
[2021-02-19] MEDS: ACETAMINOPHEN 500 MG TAB PO PRN ×2 (08:54→16:15)
[2021-02-19] MEDS: ENSURE HIGH PROTEIN 237 ML CAN PO SCH ×2 (08:54→19:38)
[2021-02-19] MEDS: ROSUVASTATIN 10 MG TAB PO SCH (19:37)
[2021-02-20] MEDS: METHYL SALICYLATE/MENTHOL 3 OZ TUBE TOP PRN (01:45)
[2021-02-20] MEDS: LIDOCAINE 4% PATCH TOP SCH (08:36)
[2021-02-20] MEDS: APIXABAN 5 MG TABLET PO SCH ×2 (08:37→20:43)
[2021-02-20] MEDS: VITAMIN D 1000 UNIT TAB PO SCH (08:37)
[2021-02-20] MEDS: CRANBERRY FRUIT EXTRACT 200 MG CAP PO SCH ×2 (08:37→20:43)
[2021-02-20] MEDS: FUROSEMIDE 20 MG TABLET PO SCH (08:38)
[2021-02-20] MEDS: ACETAMINOPHEN 500 MG TAB PO PRN ×2 (08:38→15:17)
[2021-02-20] MEDS: FLUOXETINE 20 MG CAP PO SCH (08:38)
[2021-02-20] MEDS: AMLODIPINE 5 MG TAB PO SCH ×2 (08:38→20:43)
[2021-02-20] MEDS: LOSARTAN POTASSIUM 50 MG TABLET PO SCH (08:38)
[2021-02-20] MEDS: ENSURE HIGH PROTEIN 237 ML CAN PO SCH ×2 (08:39→20:43)
--- NOTE | 2021-02-20 15:16 | FAST ---
[employer] FORM SHIFT START DATE/TIME: 02/20/2021 07:00 (CDT) SHIFT END DATE/TIME: 02/20/2021 19:00 (CDT) NAME ROSY SANCHES DATE OF : 1940 DATE OF ADMISSION: 02/04/2021 20:55 (CDT) PHONE: AGE: 80 N# [id number] GENDER: Female ENCOUNTER PHYSICIAN: Dr. Jose Martin Lozano M.D. ADMISSION DIAGNOSIS: - Stroke 01 - Right Body (Left Brain) (01.2) ACUTE RIGHT FRONTAL STROKE. EATING: EATING - STEP 1: Does the patient complete the activity by him/herself with no assistance (physical, verbal/nonverbal cueing, setup/clean-up)? No. EATING - STEP 2: Does the patient need only setup/clean-up assistance from one helper? Yes. 1. [id number] ADMISSION PERFORMANCE: Setup or clean-up assistance CODE: 05 ORAL HYGIENE: ORAL HYGIENE - STEP 1: Does the patient complete the activity by him/herself with no assistance (physical, verbal/nonverbal cueing, setup/clean-up)? No. ORAL HYGIENE - STEP 2: Does the patient need only setup/clean-up assistance from one helper? Yes. 1. [id number] ADMISSION PERFORMANCE: Setup or clean-up assistance CODE: 05 TOILETING HYGIENE: TOILETING HYGIENE - STEP 1: Does the patient complete the activity by him/herself with no assistance (physical, verbal/nonverbal cueing, setup/clean-up)? No. TOILETING HYGIENE - STEP 2: Does the patient need only setup/clean-up assistance from one helper? No. TOILETING HYGIENE - STEP 3: Does the patient need only verbal/nonverbal cueing or touching/steadying/contact guard assistance fro m one helper? Yes. 1. [id number] ADMISSION PERFORMANCE: Supervision or touching assistance CODE: 04 BATHING: Not assessed/no information CODE: - DRESSING - UPPER BODY: DRESSING - UPPER BODY - STEP 1: Does the patient complete the activity by him/herself with no assistance (physical, verbal/nonverbal cueing, setup/clean-up)? No. DRESSING - UPPER BODY - STEP 2: Does the patient need only setup/clean-up assistance from one helper? No. DRESSING - UPPER BODY - STEP 3: Does the patient need only verbal/nonverbal cueing or touching/steadying/contact guard assistance fro m one helper? Yes. 1. [id number] ADMISSION PERFORMANCE: Supervision or touching assistance CODE: 04 DRESSING - LOWER BODY: DRESSING - LOWER BODY - STEP 1: Does the patient complete the activity by him/herself with no assistance (physical, verbal/nonverbal cueing, setup/clean-up)? No. DRESSING - LOWER BODY - STEP 2: Does the patient need only setup/clean-up assistance from one helper? No. DRESSING - LOWER BODY - STEP 3: Does the patient need only verbal/nonverbal cueing or touching/steadying/contact guard assistance fro m one helper? Yes. 1. [id number] ADMISSION PERFORMANCE: Supervision or touching assistance CODE: 04 PUTTING ON/TAKING OFF FOOTWEAR: FOOTWEAR - STEP 1: Does the patient complete the activity by him/herself with no assistance (physical, verbal/nonverbal cueing, setup/clean-up)? No. FOOTWEAR - STEP 2: Does the patient need only setup/clean-up assistance from one helper? No. FOOTWEAR - STEP 3: Does the patient need only verbal/nonverbal cueing or touching/steadying/contact guard assistance fro m one helper? No. FOOTWEAR - STEP 4: Does the patient need physical assistance - for example lifting or trunk support from one helper - wi th the helper providing less than half of the effort? No. FOOTWEAR - STEP 5: Does the patient need physical assistance - for example lifting or trunk support from one helper - wi th the helper providing more than half of the effort? No. FOOTWEAR - STEP 6: Does the helper provide all of the effort? OR Is the assistance of two or more helpers required to co mplete the activity? Yes. 1. [id number] ADMISSION PERFORMANCE: Dependent CODE: 01 ROLL LEFT AND RIGHT: ROLL LEFT AND RIGHT - STEP 1: Does the patient complete the activity by him/herself with no assistance (physical, verbal/nonverbal cueing, setup/clean-up)? No. ROLL LEFT AND RIGHT - STEP 2: Does the patient need only setup/clean-up assistance from one helper? No. ROLL LEFT AND RIGHT - STEP 3: Does the patient need only verbal/nonverbal cueing or touching/steadying/contact guard assistance fro m one helper? Yes. 1. [id number] ADMISSION PERFORMANCE: Supervision or touching assistance CODE: 04 SIT TO LYING: SIT TO LYING - STEP 1: Does the patient complete the activity by him/herself with no assistance (physical, verbal/nonverbal cueing, setup/clean-up)? No. SIT TO LYING - STEP 2: Does the patient need only setup/clean-up assistance from one helper? No. SIT TO LYING - STEP 3: Does the patient need only verbal/nonverbal cueing or touching/steadying/contact guard assistance fro m one helper? No. SIT TO LYING - STEP 4: Does the patient need physical assistance - for example lifting or trunk support from one helper - wi th the helper providing less than half of the effort? Yes. 1. [id number] ADMISSION PERFORMANCE: Partial/moderate assistance CODE: 03 LYING TO SITTING: LYING TO SITTING ON SIDE OF BED - STEP 1: Does the patient complete the activity by him/herself with no assistance (physical, verbal/nonverbal cueing, setup/clean-up)? No. LYING TO SITTING ON SIDE OF BED - STEP 2: Does the patient need only setup/clean-up assistance from one helper? No. LYING TO SITTING ON SIDE OF BED - STEP 3: Does the patient need only verbal/nonverbal cueing or touching/steadying/contact guard assistance fro m one helper? Yes. 1. [id number] ADMISSION PERFORMANCE: Supervision or touching assistance CODE: 04 SIT TO STAND: SIT TO STAND - STEP 1: Does the patient complete the activity by him/herself with no assistance (physical, verbal/nonverbal cueing, setup/clean-up)? No. SIT TO STAND - STEP 2: Does the patient need only setup/clean-up assistance from one helper? No. SIT TO STAND - STEP 3: Does the patient need only verbal/nonverbal cueing or touching/steadying/contact guard assistance fro m one helper? Yes. 1. [id number] ADMISSION PERFORMANCE: Supervision or touching assistance CODE: 04 TRANSFERS: BED, CHAIR: CHAIR/[id number] TRANSFER - STEP 1: Does the patient complete the activity by him/herself with no assistance (physical, verbal/nonverbal cueing, setup/clean-up)? No. CHAIR/[id number] TRANSFER - STEP 2: Does the patient need only setup/clean-up assistance from one helper? No. CHAIR/[id number] TRANSFER - STEP 3: Does the patient need only verbal/nonverbal cueing or touching/steadying/contact guard assistance fro m one helper? Yes. 1. [id number] ADMISSION PERFORMANCE: Supervision or touching assistance CODE: 04 TRANSFER TOILET: TOILET TRANSFER - STEP 1: Does the patient complete the activity by him/herself with no assistance (physical, verbal/nonverbal cueing, setup/clean-up)? No. TOILET TRANSFER - STEP 2: Does the patient need only setup/clean-up assistance from one helper? No. TOILET TRANSFER - STEP 3: Does the patient need only verbal/nonverbal cueing or touching/steadying/contact guard assistance fro m one helper? Yes. 1. [id number] ADMISSION PERFORMANCE: Supervision or touching assistance CODE: 04 TRANSFERS: CAR: Not assessed/no information CODE: - WALK 10 FEET: Not assessed/no information CODE: - 1 STEP (CURB): Not assessed/no information CODE: - PICKING UP OBJECT: Not assessed/no information CODE: - DOES THE PATIENT USE A WHEELCHAIR/SCOOTER? Q1. DOES THE PATIENT USE A WHEELCHAIR/SCOOTER?: Yes CODE: 1 WHEEL 50 FEET WITH TWO TURNS: WHEEL 50 FEET WITH TWO TURNS - STEP 1: Does the patient complete the activity by him/herself with no assistance (physical, verbal/nonverbal cueing, setup/clean-up)? No. WHEEL 50 FEET WITH TWO TURNS - STEP 2: Does the patient need only setup/clean-up assistance from one helper? No. WHEEL 50 FEET WITH TWO TURNS - STEP 3: Does the patient need only verbal/nonverbal cueing or touching/steadying/contact guard assistance fro m one helper? No. WHEEL 50 FEET WITH TWO TURNS - STEP 4: Does the patient need physical assistance - for example lifting or trunk support from one helper - wi th the helper providing less than half of the effort? Yes. 1. [id number] ADMISSION PERFORMANCE: Partial/moderate assistance CODE: 03 INDICATE THE TYPE OF WHEELCHAIR/SCOOTER USED: RR1. INDICATE THE TYPE OF WHEELCHAIR/SCOOTER USED.: Manual CODE: 1 WHEEL 150 FEET: WHEEL 150 FEET - STEP 1: Does the patient complete the activity by him/herself with no assistance (physical, verbal/nonverbal cueing, setup/clean-up)? No. WHEEL 150 FEET - STEP 2: Does the patient need only setup/clean-up assistance from one helper? No. WHEEL 150 FEET - STEP 3: Does the patient need only verbal/nonverbal cueing or touching/steadying/contact guard assistance fro m one helper? Yes. 1. [id number] ADMISSION PERFORMANCE: Supervision or touching assistance CODE: 04 INDICATE THE TYPE OF WHEELCHAIR/SCOOTER USED: SS1. INDICATE THE TYPE OF WHEELCHAIR/SCOOTER USED.: Manual CODE: 1 BLADDER AND BOWEL: H350. BLADDER CONTINENCE (3-DAY ASSESSMENT PERIOD): Incontinent daily (at least once a day) CODE: 3 H400. BOWEL CONTINENCE (3-DAY ASSESSMENT PERIOD): Always continent CODE: 0 SIGNATURE PANEL: The following modified sections: 1. [id number] Admission Performance, 1. [id number] Admission Performance, 1. [id number] Admission Performance, 1. [id number] Admission Performance, 1. [id number] Admission Performance, 1. [id number] Admission Performance, 1. [id number] Admission Performance, 1. [id number] Admission Performance , 1. [id number] Admission Performance, 1. [id number] Admission Performance, 1. [id number] Admission Performanc e, 1. [id number] Admission Performance, 1. [id number] Admission Performance, 1. [id number] Admission Performan ce, Q1. Does the patient use a wheelchair/scooter?, 1. [id number] Admission Performance, 1. [id number] Admi ssion Performance, RR1. Indicate the type of wheelchair/scooter used., 1. [id number] Admission Performan ce, Code, SS1. Indicate the type of wheelchair/scooter used., H350. Bladder Continence (3-day assessm ent period), H400. Bowel Continence (3-day assessment period) were [electronically] signed by Malu Brooks C.N.A. on SunFeb 20 2021 15:15:02 T-0500 (Central Daylight Time)
[2021-02-20] MEDS ORDERED: DOCUSATE NA/SENNA CONC 1 TAB PO PRN (17:50)
[2021-02-20] MEDS: ROSUVASTATIN 10 MG TAB PO SCH (20:43)
[2021-02-20] MEDS: DOCUSATE NA 100 MG CAP PO PRN (20:44)
[2021-02-21] MEDS: LIDOCAINE 4% PATCH TOP SCH (06:47)
[2021-02-21] MEDS: ACETAMINOPHEN 500 MG TAB PO PRN ×2 (07:48→20:01)
[2021-02-21] MEDS: APIXABAN 5 MG TABLET PO SCH ×2 (07:50→20:00)
[2021-02-21] MEDS: VITAMIN D 1000 UNIT TAB PO SCH (07:50)
[2021-02-21] MEDS: AMLODIPINE 5 MG TAB PO SCH ×2 (07:50→20:00)
[2021-02-21] MEDS: LOSARTAN POTASSIUM 50 MG TABLET PO SCH (07:50)
[2021-02-21] MEDS: FUROSEMIDE 20 MG TABLET PO SCH (07:50)
[2021-02-21] MEDS: CRANBERRY FRUIT EXTRACT 200 MG CAP PO SCH ×2 (07:50→20:00)
[2021-02-21] MEDS: FLUOXETINE 20 MG CAP PO SCH (07:50)
[2021-02-21] MEDS: ENSURE HIGH PROTEIN 237 ML CAN PO SCH ×2 (07:51→20:00)
--- NOTE | 2021-02-21 17:35 | R.PN ---
PROGRESS NOTES ENCOUNTER DATE AND TIME: 02/21/2021 17:32 (CDT) NAME ROSY SANCHES DATE OF : 1940 DATE OF ADMISSION: 02/04/2021 20:55 (CDT) ACUTE RIGHT FRONTAL STROKECHIEF COMPLAINT: Right brain stroke with left sided weakness SUBJECTIVE: Pt denied any Shortness of Breath. Pt denied any depression. CBC with differential is normal. Prealbumin is 17.9, COVID-19 is negative. Ambulated 250' with contact guard assistance using a left platform rolling walker. VITAL SIGNS Temperature: 97.5 F SBP/DBP: 137/46 Pulse: 60 Resp: 16 MEDICATION ALLERGIES: PENICILLIN ENVIRONMENTAL ALLERGIES: - Substance Allergies None Known - Other Allergies None Known NURSING: - Shower allowing shower - Bladder care per protocol - Skin care per protocol PRECAUTIONS: - Weight Bearing Precaution WBAT right LE ACTIVITIES OOB only with supervision THERAPIES: - Occupational Therapy Cognitive Retraining. Visual Perceptual Training. - Dietary and Nutrition Adequate Nutrition. Nutritional Education. Nutritional Supplements. - Speech Therapy Cognitive Training. Expressive Language Skills. Memory Strategies. Receptive Language Skills. Speech Intelligibility Training. PHYSICAL EXAM - Gen Alert and awake Lying in bed No apparent distress Oriented to: person, time, and place - Skin No breakdown Normacephalic - Eyes No abnormalities - ENMT No abnormalities - Neck No abnormalities - CVS RRR - Chest Clear - Abd + bowel sounds - GI Soft Deferred - No abnormalities - Ext No significant edema - MSK 4+/5 weakness in right upper and lower extremities. - Neuro 4/5 strength right upper and lower extremities. - Psych Mild anxiety. ASSESSMENT: Pt. is a 80 yo Right-handed female.On 01/25/2021 Pt. presented to [facility] with sudden onset of righ t-side weakness.On 01/25/2021 she was admitted to [facility] with diagnosis ACUTE RIGHT FRONTAL STROKE .Her impairment category is Stroke 01 - Right Body (Left Brain) (01.2).Pre-morbidly, Pt. was indepen dent/mod-I in Locomotion, Balance, Safety Awareness, and Self-Care; and she had good Endurance, Commu nication, and Social Cognition.Currently, she has deficits of Locomotion, Balance, Safety Awareness, Transfers Control, Sphincter Control, Communication, Self-Care, and Endurance.Pt. is now referred to [facility] for acute in-patient rehabilitation in order to maximize patient's functional independence in activities of daily living, strength, ROM, and mobility.- Rehab Goal Patient has realistic goal of being discharged at assistance level 7-Ind to reside at Home with Fami ly/Relatives. - Physical Therapy Gait dysfunction - to improve, our physical therapists will perform initial evaluation of pt's statu s upon admission and devise an individualized program for Gait Training, and Wheel Chair mobility Inability to transfer - to improve, our physical therapists will perform initial evaluation of pt's status upon admission and devise an individualized program for Bed mobility Need for home safety evaluation - to improve, our physical therapists will perform initial evaluatio n of pt's status upon admission and devise an individualized program for Home Evaluation Need in caregiver upon discharge - to improve, our physical therapists will perform initial evaluati on of pt's status upon admission and devise an individualized program for Caregiver Training Edema - to improve, our physical therapists will perform initial evaluation of pt's status upon admi ssion and devise an individualized program for Elevation Training, and Lymphedema Therapy New precaution - to improve, our physical therapists will perform initial evaluation of pt's status upon admission and devise an individualized program for Patient precaution education Poor balance - to improve, our physical therapists will perform initial evaluation of pt's status up on admission and devise an individualized program for Balance Training Poor endurance - to improve, our physical therapists will perform initial evaluation of pt's status upon admission and devise an individualized program for Endurance Training Achieving independence - to improve, our physical therapists will perform initial evaluation of pt's status upon admission and devise an individualized program for Community Reintegration Activities - Occupational Therapy ADL deficits - to improve, our occupation therapists will perform initial evaluation of pt's status upon admission and devise an individualized program for Bathing, Bed mobility, Community Reintegratio n, Cooking, Dressing, Eating, Fine Motor Skills, Grooming, Homemaking, Kitchen Mobility, Laundry, Pat ient Education, Safety Awareness, Splinting - Positioning, Transfers(Toilet, Tub, Shower), and Wheel Chair Management Need for home care coordinator - to improve, our occupation therapists will perform initial evaluation of pt's status upon admission and devise an individualized program for Caregiver Training - Other See attached MAR (Medication Administration Record) - Diet Type Continue Regular - Diet - Liquid Texture Continue Regular - Tube Feed Continue N/A - Bladder care per protocol - Weight Bearing Precaution WBAT right LE - Skin care per protocol - Diet - Solid Texture Continue Regular - Shower allowing shower for Dementia, TBI, Stroke, or others FUNCTIONAL STATUS: UPDATED AT WEEKLY TEAM CONFERENCE - Bladder Same accident frequency: 7-Ind - No accidents in the past 7 days - Bowel Same accident frequency: 7-Ind - No accidents in the past 7 days - Walking Same score based on distance walked: 0(N/A) Same score based on distance walked: 2(50-149ft) - Wheelchair Same score based on distance traveled: 0(N/A) FUNCTIONAL STATUS: - Self-Care A. Eating Tanvi B. Grooming Tanvi C. Bathing Christiano D. Dressing - Upper Christiano E. Dressing - Lower Christiano F. Toileting Christiano - Sphincter Control G. Bladder control Tanvi H. Bowel control Tanvi - Transfers Control I. Bed/Chair/Wheelchair sup J. Toilet sup K. Tub/Shower Christiano - Locomotion L. Walk/Wheelchair (B) Christiano M. Stairs ADNO - Communication N. Comprehension (B) sup O. Expression (B) sup - Social Cognition P. Social Interaction sup Q. Problem Solving Christiano R. Memory Christiano - Endurance Fair - Balance Fair - Safety Awareness Fair QI SCORES: - Self-Care A. Eating 03-Partial/moderate assistance B. Oral hygiene 03-Partial/moderate assistance C. Toileting hygiene 03-Partial/moderate assistance E. Shower/bathe self F. Upper body dressing 03-Partial/moderate assistance G. Lower body dressing 03-Partial/moderate assistance H. Putting on/taking off footwear 88-Not attempted due to medical condition or safety concerns - Mobility A. Roll left and right 03-Partial/moderate assistance B. Sit to lying 03-Partial/moderate assistance C. Lying to sitting on side of bed 03-Partial/moderate assistance D. Sit to stand 03-Partial/moderate assistance E. Chair/fys-cl-rquws transfer 03-Partial/moderate assistance F. Toilet transfer 03-Partial/moderate assistance G. Car transfer 88-Not attempted due to medical condition or safety concerns I. Walk 10 feet 03-Partial/moderate assistance J. Walk 50 feet with two turns 88-Not attempted due to medical condition or safety concerns K. Walk 150 feet 88-Not attempted due to medical condition or safety concerns L. Walking 10 feet on uneven surfaces 88-Not attempted due to medical condition or safety concerns M. 1 step (curb) 88-Not attempted due to medical condition or safety concerns N. 4 steps 88-Not attempted due to medical condition or safety concerns O. 12 steps 88-Not attempted due to medical condition or safety concerns P. Picking up object 88-Not attempted due to medical condition or safety concerns R. Wheel 50 feet with two turns 88-Not attempted due to medical condition or safety concerns S. Wheel 150 feet 88-Not attempted due to medical condition or safety concerns - Bladder and Bowel Bladder continence Bowel continence - Endurance Good - Balance Fair - Safety Awareness Fair CURRENT [facility]. DEFICITS: Self-Care, Mobility, Balance, and Safety Awareness SIGNATURE PANEL: (CDT)
[2021-02-21] MEDS: ROSUVASTATIN 10 MG TAB PO SCH (20:00)
[2021-02-21] MEDS: DOCUSATE NA 100 MG CAP PO PRN (20:01)
[2021-02-22 07:48] VITALS: TEMP 97.3
[2021-02-22] MEDS: ACETAMINOPHEN 500 MG TAB PO PRN (08:09)
[2021-02-22] MEDS: LOSARTAN POTASSIUM 50 MG TABLET PO SCH (08:09)
[2021-02-22] MEDS: CRANBERRY FRUIT EXTRACT 200 MG CAP PO SCH (08:10)
[2021-02-22] MEDS: VITAMIN D 1000 UNIT TAB PO SCH (08:10)
[2021-02-22] MEDS: FLUOXETINE 20 MG CAP PO SCH (08:10)
[2021-02-22] MEDS: AMLODIPINE 5 MG TAB PO SCH (08:10)
[2021-02-22] MEDS: ENSURE HIGH PROTEIN 237 ML CAN PO SCH (08:11)
[2021-02-22] MEDS: APIXABAN 5 MG TABLET PO SCH (08:11)
[2021-02-22] MEDS: FUROSEMIDE 20 MG TABLET PO SCH (08:11)
[2021-02-22 08:12] VITALS: BP 139/63
[2021-02-22] MEDS: LIDOCAINE 4% PATCH TOP SCH (08:57)
== END 2021-02-22 14:40 | disposition home or self-care (01) | DRG 57 ==
LOC: 5TH 02-04 20:55 → OBSVTOIN 02-04 20:55
PROVIDERS: ADMIT Psychiatry & Neurology Neurology with Special Qualifications in Child Neurology; ATTEND Psychiatry & Neurology Neurology with Special Qualifications in Child Neurology
DX: I69.354 Hemiplegia and hemiparesis following cerebral infarction affecting left non-dominant side (principal); Z88.0 Allergy status to penicillin; Z20.822 Contact with and (suspected) exposure to COVID-19
CPT/HCPCS: 36415; 80048; 81001; 81003; 81015; 82040; 83735; 84134; 85025; 87086; 87088; 92523; 97110; 97112; 97116; 97127; 97161; 97530; 97542; U0003